=== PATIENT | male | born 1950 | race Caucasian/White ===

== ENCOUNTER → 2017-05-09 | Day surgery (SDC) | payer MEDICARE ==
[~2017-05-09] VITALS: Ht 182.8 cm; Wt 124.7 kg
[~2017-05-09] MED LIST: ASPIRIN325 M2 PO; COREG3.125 MG PO; GLIMEPIRIDE4 MG PO; HYDROCODONE BIT1 T11 PO; METFORMIN HCL500 MG PO; NOVOLIN 70/30 710 ML SC; PENICILLIN VK500 MG PO; PLAVIX75 M1 PO; PRAVACHOL20 MG PO; Peridex 473 ML473 ML PO; TENORMIN25 M1 PO; XANAX0.5 MG PO; ZESTRIL20 MG PO; ZOLOFT100 MG PO; [UNRECOGNIZED DRUG - OTHER] SC
--- NOTE | ~2017-05-09 | O ---
[place], [place] OPERATIVE NOTE NAME: [facility]LLA [facility]ANCOCK [facility] [id number] UNIT #: [id number] ROOM: DOCTOR: MIRA ROMERO MD BIRTHDATE: [birth year] DOS: 05/09/2017 PREOPERATIVE DIAGNOSIS: Cataract, right eye. POSTOPERATIVE DIAGNOSIS: Cataract, right eye. OPERATION: Extracapsular cataract extraction by phacoemulsification with posterior chamber intraocular lens implantation, right eye. ANESTHESIA: Monitored standby. OPERATIVE FINDINGS AND PROCEDURE: 2% Xylocaine topical anesthetic gel was applied to the eye in the preop area. The patient was prepped and draped in the standard fashion for sterile intraocular surgery using Hibiclens because of IODINE allergy. A time out procedure was performed verifying correct patient, correct site and corrects lens with Jamison Romero MD. The operating microscope was swung into position and the lid speculum was inserted. Using a Joelle paracentesis blade, a paracentesis was made through clear cornea. Viscoelastic was used to fill the anterior chamber. Using a metal keratome a 2.4 mm self-sealing clear corneal cataract incision was made temporally at the limbus. Using a pre-bent 25 gauge cystotome needle, a standard continuous curvilinear capsulorrhexis was performed. The anterior capsule was removed with forceps. The lens nucleus was hydrodissected and phacoemulsified in the posterior chamber. Cortical material was removed with the irrigation aspiration hand piece and the posterior capsule was then polished with a curet under irrigation. The posterior chamber and capsular bag were filled with viscoelastic. A posterior chamber intraocular lens manufactured by: [employer], Model #[id number], and 23.0 diopters in strength were then inserted into the posterior chamber and within the capsular bag using the lens cartridge and injector system. Viscoelastic was removed using the irrigation aspiration handpiece. The anterior chamber was filled with balanced salt solution through the paracentesis. Both the paracentesis site and cataract incisions were hydrated with BSS and verified to be water-tight and self-sealing. Cefuroxime 1 mg/0.1 mL was injected into the anterior chamber through the paracentesis site. The incision checked to be water-tight using a Weck-Melani sponge. The integrity of the cataract wound and ocular tension were checked. Lid speculum and drapes were removed. The patient was transferred from the operating room to the recovery room in satisfactory condition. [place], [place] OPERATIVE NOTE NAME: IZABELLA HANCOCK UNIT #: [id number] ROOM: DOCTOR: MIRA ROMERO MD BIRTHDATE: [birth year] MIRA ROMERO MD CM:OPRECORD:OPERATIVE NOTE [phone] 5 MIRA ROMERO MD 05/09/17905 interface
[2017-05-09 07:30] VITALS: BP 159/82
[2017-05-09 08:40] VITALS: BP 131/76
[2017-05-09 08:55] VITALS: BP 138/65
== END | disposition home or self-care (01) ==
LOC: SDC 05-07 15:30
DX: E11.36 Type 2 diabetes mellitus with diabetic cataract (principal); H25.89 Other age-related cataract; I25.10 Atherosclerotic heart disease of native coronary artery without angina pectoris; I25.2 Old myocardial infarction; I10 Essential (primary) hypertension; I12.9 Hypertensive chronic kidney disease with stage 1 through stage 4 chronic kidney disease, or unspecified chronic kidney disease; N18.9 Chronic kidney disease, unspecified; F32.9 Major depressive disorder, single episode, unspecified; Z95.5 Presence of coronary angioplasty implant and graft; Z95.810 Presence of automatic (implantable) cardiac defibrillator; Z86.73 Personal history of transient ischemic attack (TIA), and cerebral infarction without residual deficits; Z98.890 Other specified postprocedural states; Z83.3 Family history of diabetes mellitus; Z82.49 Family history of ischemic heart disease and other diseases of the circulatory system

== ENCOUNTER → 2017-05-30 | Day surgery (SDC) | payer MEDICARE ==
[~2017-05-30] VITALS: Ht 182.8 cm; Wt 124.7 kg
--- NOTE | ~2017-05-30 | O ---
[place], [place] OPERATIVE NOTE NAME: IZABELLA HANCOCK [facility] #: [id number] UNIT #: [id number] ROOM: DOCTOR: MIRA ROMERO MD BIRTHDATE: [birth year] DOS: 05/30/2017 PREOPERATIVE DIAGNOSIS: Cataract, left eye. POSTOPERATIVE DIAGNOSIS: Cataract, left eye. OPERATION: Extracapsular cataract extraction by phacoemulsification with posterior chamber intraocular lens implantation, left eye. ANESTHESIA: Monitored standby. OPERATIVE FINDINGS AND PROCEDURE: 2% Xylocaine topical anesthetic gel was applied to the eye in the preop area. The patient was taken to the operating room and prepped and draped in the standard fashion for sterile intraocular surgery. A time out procedure was performed verifying correct patient, correct site and corrects lens with Jamison Romero M.D. The operating microscope was swung into position and the lid speculum was inserted. Using a Joelle paracentesis blade, a paracentesis was made through clear cornea. Viscoelastic was used to fill the anterior chamber. Using a metal keratome a 2.4 mm self-sealing clear corneal cataract incision was made temporally at the limbus. Using a pre-bent 25 gauge cystotome needle, a standard continuous curvilinear capsulorrhexis was performed. The anterior capsule was removed with forceps. The lens nucleus was hydrodissected and phacoemulsified in the posterior chamber. Cortical material was removed with the irrigation aspiration hand piece and the posterior capsule was then polished with a curet under irrigation. The posterior chamber and capsular bag were filled with viscoelastic. A posterior chamber intraocular lens manufactured by: [employer], Model #[id number], and 22.5 diopters in strength were then inserted into the posterior chamber and within the capsular bag using the lens cartridge and injector system. Viscoelastic was removed using the irrigation aspiration handpiece. The anterior chamber was filled with balanced salt solution through the paracentesis. Both the paracentesis site and cataract incisions were hydrated with BSS and verified to be water-tight and self-sealing. Cefuroxime 1 mg/0.1 mL was injected into the anterior chamber through the paracentesis site. The incision checked to be water-tight using a Weck-Melani sponge. The integrity of the cataract wound and ocular tension were checked. Lid speculum and drapes were removed. The patient was transferred from the operating room to the recovery room in satisfactory condition. [place], [place] OPERATIVE NOTE NAME: IZABELLA HANCOCK UNIT #: [id number] ROOM: DOCTOR: MIRA ROMERO MD BIRTHDATE: [birth year] MIRA ROMERO MD CM:OPRECORD:OPERATIVE NOTE 0914 [id number] MIRA ROMERO MD 05/30/17 1030 interface
[2017-05-30 07:30] VITALS: BP 167/93
[2017-05-30 09:13] VITALS: BP 116/77
[2017-05-30 09:28] VITALS: BP 127/74
[2017-05-30 09:43] VITALS: BP 131/77
== END | disposition home or self-care (01) ==
LOC: SDC 05-24 10:15
DX: E11.36 Type 2 diabetes mellitus with diabetic cataract (principal); Z79.84 Long term (current) use of oral hypoglycemic drugs; I21.3 ST elevation (STEMI) myocardial infarction of unspecified site; M19.90 Unspecified osteoarthritis, unspecified site; I25.10 Atherosclerotic heart disease of native coronary artery without angina pectoris; E11.22 Type 2 diabetes mellitus with diabetic chronic kidney disease; I12.9 Hypertensive chronic kidney disease with stage 1 through stage 4 chronic kidney disease, or unspecified chronic kidney disease; N18.9 Chronic kidney disease, unspecified; F32.9 Major depressive disorder, single episode, unspecified; Z98.890 Other specified postprocedural states

== ENCOUNTER 2018-03-17 01:42 | Inpatient (IN) | payer MEDICARE ==
[2018-03-17] VITALS (13 sets, daily range): BP systolic 77–143; BP diastolic 53–92
[~2018-03-17] VITALS: Ht 182.9 cm; Wt 122.0 kg
--- NOTE | ~2018-03-17 | PR ---
[place], [place] PROGRESS NOTE NAME: IZABELLA HANCOCK UNIT #: [id number] ROOM: 411 DOCTOR: MENDY TARANGO MD BIRTHDATE: [birth year] DOS: 03/22/2018 SUBJECTIVE: The patient going for another foot procedure for debridement tomorrow and his white cell counts continued to improve with antibiotics for debridement. OBJECTIVE: VITAL SIGNS: Blood pressure 128/72, heart rate 67 beats per minute, breathing 20 times per minute and temperature 98.2 degrees Fahrenheit. GENERAL APPEARANCE: The patient is alert and oriented x 3, in no visible distress except for obesity. HEENT AND NECK: Exam within normal limits. CARDIOVASCULAR SYSTEM: Heart rate is regular in rate and rhythm. S1 and S2 normally audible. LUNGS: Clear to auscultation. ABDOMEN: Soft, nontender. No obvious organomegaly. Bowel sounds are present. EXTREMITIES: Left foot debridement. IMPRESSIONS AND PLAN: 1. Left foot osteomyelitis and necrotizing fasciitis. The patient is going for another debridement of the foot by foot surgeons tomorrow and being followed by Infectious Disease specialist. The patient remains on Unasyn intravenously. 2. Benign essential hypertension, treated and controlled. 3. Major depression, recurrent, mild, treated with Zoloft. 4. Type 2 diabetes mellitus. The patient is on no concentrated sweet diet and on glimepiride. Blood sugars are reasonably controlled. 5. Severe systolic type compensated congestive heart failure, seen by his metals sales representative, Dr. Winchester. 6. Obesity with body mass index of 35.8. The patient working with dietary. 7. Coronary artery disease of the [place] vessels without chest pains. 8. Advance adult failure to thrive. We are taking an ambulatory dysfunction. We are taking bedsore precautions turning him every 2 hours using an air mattress. 9. Severe leukocytosis from left foot infection, improving with antibiotics and wound debridement. [place], [place] PROGRESS NOTE NAME: IZABELLA HANCOCK UNIT #: [id number] ROOM: 411 DOCTOR: MENDY TARANGO MD BIRTHDATE: [birth year] MENDY TARANGO MD CM:PNTRANS [phone] 1 MENDY TARANGO MD 03/23/18252 interface
--- NOTE | ~2018-03-17 | CON ---
[place], [place] REPORT OF CONSULTATION NAME: IZABELLA HANCOCK UNIT #: [id number] ROOM: 411 DOCTOR: AAYUSH GABRIEL MD BIRTHDATE: [birth year] DOS: 03/18/2018 HISTORY OF PRESENT ILLNESS: This is a 67-year-old -[place] man with a history of coronary artery disease and severe ischemic cardiomyopathy, had an AICD implanted. He had had an acute AZ back in 2002, also has insulin-requiring diabetes mellitus, hyperlipidemia, GERD and chronic systolic heart failure with no recent decompensation. He has obesity. He was admitted to the hospital because he had been feeling lethargic, dizzy and apparently fell down and hurt himself and while being examined, a blister on the left foot was identified. It ruptured and it had had become somewhat red, so further examination demonstrated that he had an abscess which he had drained and had amputation of one of the toes today. I saw him in the office about a week or two ago. He has not had any PND, orthopnea or swelling of the lower extremities or palpitations and AICD has not discharged. HOME MEDICATIONS: Include aspirin 325 daily, clopidogrel 75 mg, glimepiride 4 mg daily, lisinopril 20 daily, metformin 500 mg b.i.d., pravastatin 40 daily, sertraline or Zoloft 100 mg tablets one and a half daily; and Novolin 70/30, 7 units subQ b.i.d. PHYSICAL EXAMINATION: GENERAL: This revealed the patient who is very pleasant, alert. He is moderately obese, not pale looking, he is not diaphoretic. VITAL SIGNS: Temperature 97.8 degrees Fahrenheit. Pulse is 80 regular, blood pressure 139/74. NECK: Normal JVP. AJR is negative. EXTREMITIES: He has no edema in lower extremity. Pedal pulses are difficult to palpate. RESPIRATORY: He is not tachypneic. Percussion note is normal. Auscultation is excellent breath sounds without any adventitious sounds. ABDOMEN: Supple, nontender. It is large. Bowel sounds are normal. LABORATORY DATA: An echocardiogram was done today. It demonstrated an LV ejection fraction of 35-40% and mildly dilated left ventricle and grade 1 abnormal relaxation pattern. IMPRESSION: This patient has a moderate to moderately severe cardiomyopathy that is well compensated. Current medications should be continued. Be cautious with the IV fluids as he could develop cardiac decompensation. I thank you for this consult. [place], [place] REPORT OF CONSULTATION NAME: IZABELLA HANCOCK UNIT #: [id number] ROOM: 411 DOCTOR: AAYUSH GABRIEL MD BIRTHDATE: [birth year] AAYUSH GABRIEL MD CM:CONSTR:REPORT OF CONSULTATION 15 03/19/18 0236 interface
--- NOTE | ~2018-03-17 | PR ---
[place], [place] PROGRESS NOTE NAME: IZABELLA HANCOCK [facility] #: [id number] UNIT #: [id number] ROOM: 411 DOCTOR: AAYUSH GABRIEL MD BIRTHDATE: [birth year] DOS: 03/24/2018 SUBJECTIVE: He has been in bed for the last week, has not been sat in the chair. He has some back pain, but no chest pain or breathing difficulty, no orthopnea or PND, and has not had any swelling in the legs. No fever or chills. He had debridement of osteomyelitis and cellulitis of the left foot. He feels well. Appetite is fine. No nausea and, in fact, has no symptoms. OBJECTIVE: VITAL SIGNS: Temperature 98.4 degrees, pulse is 72 and regular, blood pressure 140/76; previous blood pressure was 120/63. NECK: Normal JVP. HJR is negative. LUNGS: Clear to auscultation with good breath sounds. EXTREMITIES: Trace left pretibial edema. IMAGING: Monitor shows no dysrhythmias. IMPRESSION: This patient has: 1. Huzrggaq-ua-aeoflb ischemic cardiomyopathy, which is very well compensated. 2. Infection of the left foot is being treated with intravenous antibiotics and changing dressing. My strong recommendation is to get this patient out of the bed and have him sit and maybe walk if that is possible because otherwise, he will probably develop orthostatic hypotension, autonomic dysfunction. AAYUSH GABRIEL MD CM:PNTRANS [phone] AAYUSH GABRIEL MD 03/24/18 1053 interface
--- NOTE | ~2018-03-17 | PR ---
[place], [place] PROGRESS NOTE NAME: IZABELLA HANCOCK UNIT #: [id number] ROOM: 411 DOCTOR: MENDY TARANGO MD BIRTHDATE: [birth year] DOS: 03/23/2018 SUBJECTIVE: The patient is status post debridement and application of graft and wound VAC to his left foot for necrotizing fasciitis with white cell count improved to 14,600 from 36,000. PHYSICAL EXAMINATION: VITAL SIGNS: Blood pressure 124/73, heart rate 68 beats per minute, breathing 20 times per minute, temperature 98 degrees Fahrenheit. GENERAL APPEARANCE: The patient is alert and oriented x 3, in no visible distress. HEENT AND NECK: Exam within normal limits. CARDIOVASCULAR SYSTEM: Heart rate is regular in rate and rhythm. S1 and S2 normally audible. LUNGS: Clear to auscultation. ABDOMEN: Soft, nontender. No obvious organomegaly. Bowel sounds are present. Obesity. EXTREMITIES: Without significant cyanosis or edema. Left foot wounds. IMPRESSION: 1. The patient with left foot osteomyelitis and necrotizing fasciitis, status post 2 surgeries and wound VAC placement. 2. Severe leukocytosis related to foot infection, improving. The patient remains on IV Unasyn. 3. Major depression, recurrent, mild, treated with Zoloft. 4. Type 2 diabetes mellitus. Blood sugars are being monitored and treated and are reasonably controlled. Patient on glimepiride. 5. Severe systolic type compensated congestive heart failure followed by free lance artist, Dr. Winchester. 6. Obesity with BMI of 35.8. The patient working with dietary. 7. Coronary artery disease of [place] vessels without chest pain. 8. Advance adult failure to thrive. The patient is waiting to go to snf for rehabilitation and antibiotics. We are taking bedsore precautions. [place], [place] PROGRESS NOTE NAME: IZABELLA HANCOCK UNIT #: [id number] ROOM: 411 DOCTOR: MENDY TARANGO MD BIRTHDATE: [birth year] MENDY ATRANGO MD CM:PNTRANS [phone] MENDY TARANGO MD 03/24/18 0656 interface
--- NOTE | ~2018-03-17 | PR ---
[place], [place] PROGRESS NOTE NAME: IZABELLA HANCOCK [facility] #: [id number] UNIT #: [id number] ROOM: 411 DOCTOR: CAROL LEON DPM BIRTHDATE: [birth year] DOS: 03/23/2018 SUBJECTIVE: The patient is seen for followup of postop fifth met resection and Integra graft application. OBJECTIVE: Upon removal of the wound VAC, there are no signs of further necrosis of the foot. No signs of return of abscess. Decreased erythema. Graft is intact. ASSESSMENT: Post-debridement and application of graft, healing well. PLAN: The patient will continue wound VAC therapy and we will continue to follow the patient in-house. CAROL LEON DPM CM:SHIRIN [id number] CAROL LEON DPM 03/23/18 1429 interface
--- NOTE | ~2018-03-17 | PR ---
[place], [place] PROGRESS NOTE NAME: IZABELLA HANCOCK [facility] #: [id number] UNIT #: [id number] ROOM: 411 DOCTOR: KB MOON DPM BIRTHDATE: [birth year] DOS: 03/18/2018 SUBJECTIVE: This patient is seen in the preop area for evaluation and treatment of a significant left diabetic foot infection. The patient was admitted early Sunday morning with sepsis, elevated white count, low-grade fever. The patient subsequently was found to have a left foot infection with blistering and some necrosis of tissue highly suspicious for possible necrotizing fasciitis. Upon evaluation of the patient, there was a large area of tissue necrosis including the fifth toe, dorsal fifth MPJ, dorsal left fourth MPJ. It was extending towards the dorsal mid foot and extending medially as well. There was no crepitus felt, but there was purulence and fluctuance noted at the MPJ. There was pus coming from a plantar wound, there was malodor and again there was blistering of tissue. The patient was neuropathic, so he did not have any pain with palpation or examination of the area. LABORATORY DATA: Labs were reviewed. The patient's white count was 29,000. Lactic acid was elevated. His creatinine was elevated. Sodium was low. PLAN: I discussed with the patient the need to be taken to surgery for debridement of the area. I told him this would most likely include an amputation of the fifth toe as well as extensive debridement of the necrotic tissue. This is in an effort to remove any infected tissue to reduce progression of the infection and avoid limb loss. I told him possible complications included further debridements, further surgery, amputation, limb loss, sepsis or even loss of life. The patient is agreeable to the surgery and is aware of the possible complications. Clinically, the patient did have a barely palpable dorsalis pedis pulse with a decreased PT pulse on the left. Informed consent was signed and the patient was set to go to surgery for the procedure on the left foot. KB MOON DPM CM:PNTRANS 1801 [id number] KB MOON DPM 03/25/18 0725 interface
--- NOTE | ~2018-03-17 | WRIGHTHP ---
[place], [place] PATIENT HISTORY AND PHYSICAL EXAM NAME[id number] UNIT #: [id number] ROOM: 411 DOCTOR: ANTONIO SALINAS DPM BIRTHDATE: [birth year] DOS: 03/20/2018 INDICATION: The patient was seen in the preop holding area. I introduced myself to him. This patient has a history of diabetic foot ulcer and had previous debridement earlier this week by Dr. Loredo. At this point in time, the patient was returned back to the OR for re-debridement as he has still some necrotic tissue present as well as exposed bone. His foot looks stable and looks salvageable at this point in time based on my evaluation on him. He agreed to the site marking and agreed to the consent and he understands he is at risk for limb loss. With this in mind, he was brought in the OR today on 03/21/2018 understanding the pros, cons, risks and benefits of surgery. This is a limb salvage surgery. With this, he agreed his consent. He understood the preoperative management and the followup need and the responsibilities and this was discussed with him and his . ANTONIO SALINAS DPM CM:HISPHYS:PATIENT HISTORY AND PHYSICAL EXAMINATION 0935 1010 ANTONIO SALINAS DPM 04/16/18 1601 interface
--- NOTE | ~2018-03-17 | WRIGHTHP ---
[place], [place] PATIENT HISTORY AND PHYSICAL EXAM [id number] UN[facility] #: [id number] ROOM: 411 DOCTOR: ANTONIO SALINAS DPM BIRTHDATE: [birth year] DOS: 03/20/2018 LOWER EXTREMITY PHYSICAL EXAMINATION: VASCULAR: There is adequate perfusion in his left lower extremity based on vascular testing and also based on clinical evaluation. The digits are pink, healthy and mobile. There is good cap refill time noted. NEUROLOGIC: He has complete loss of protective sensation, diabetic peripheral neuropathy. MUSCULOSKELETAL: He has a tight posterior muscle group. Orthopedic exam, he has osteomyelitis with a deep space infection in his distal lateral forefoot. ANTONIO SALINAS DPM CM:HISPHYS:PATIENT HISTORY AND PHYSICAL EXAMINATION 0935 1148 ANTONIO SALINAS DPM 04/16/18 1601 interface
--- NOTE | ~2018-03-17 | O ---
[place], [place] OPERATIVE NOTE NAME: [facility]OCK [id number] UNIT #: [id number] ROOM: 411 DOCTOR: ANTONIO SALINAS DPM BIRTHDATE: [birth year] DOS: 03/20/2018 SURGEON: Antonio Salinas DPM ASSISTANTS: 1. Dr. Jaiden Harris. 2. Dr. Casey Rojas. PREOPERATIVE DIAGNOSES: 1. Osteomyelitis, dorsal lateral foot, the fourth and fifth metatarsals, left foot. 2. Post-debridement open wound that measures 7.5 cm x 8.0 cm x 1.5 cm. POSTOPERATIVE DIAGNOSES: 1. Osteomyelitis, dorsal lateral foot, the fourth and fifth metatarsals, left foot. 2. Post-debridement open wound that measures 7.5 cm x 8.0 cm x 1.5 cm. PROCEDURES: 1. Incision and drainage, bone debridement, bone biopsy of the left fourth and fifth metatarsals as well as the soft tissues. 2. Application of Integra graft. 3. Application of negative pressure therapy wound VAC. PROCEDURE #1: INCISION AND DRAINAGE AND BONE DEBRIDEMENT AND BONE BIOPSY OF LEFT FOREFOOT: The patient was seen in preop holding area, appropriate site marking was performed. He and his agreed, concurred with the preoperative management and was brought into the OR and appropriate site marked. At this in point, he was brought to OR, placed on well-padded OR table. Anesthesia was achieved. Once anesthesia was achieved, left foot and leg were prepped and draped in usual sterile fashion. At this point in time, a full thickness sharp excisional debridement was performed around the rim of the existing wound. This is full thickness in nature and tissues were debrided extensive down to bone and tissues were sent for Gram stain, aerobic, anaerobic, fungal acid fast as well as soft tissue biopsy. Next, bone was debrided with a rongeur and bone was excised and removed in total and resected, any necrotic tissues were noted and bone was sent for Gram stain, aerobic, anaerobic, fungal acid fast as well as a biopsy as well of the dorsum of the left foot on the fourth and fifth metatarsals. Next, a power television installer was used 3000 mL power irrigation was used. PROCEDURE #2: APPLICATION OF INTEGRA GRAFT: Next, a 4 x 5 piece of Integra graft was used. The remaining portions of 4 x 5 that was used, the collagen was debrided off and packed into the wound. The Integra graft was applied and stapled down around the rim of the wound in an essential area to prevent any shearing occurring from the wound of the left foot. PROCEDURE #3: APPLICATION OF NEGATIVE PRESSURE THERAPY WOUND VAC: At this point in time, the [employer] wound VAC was applied in the usual sterile technique. This was applied and this is set at 200 mm compression therapy and continuous. [place], [place] OPERATIVE NOTE NAME: KARISSAIZABELLA SUAREZ UNIT #: [id number] ROOM: [facility] DOCTOR: ANTONIO SALINAS DPM BIRTHDATE: [birth year] At this point in time, an Adaptic was applied with the wound VAC, 4 x 4s, Key in a sterile compressive fashion was applied. He tolerated the procedure and anesthesia well and left the OR with vital signs stable and vascular status intact. ANTONIO SALINAS DPM CM:OPRECORD:OPERATIVE NOTE 0935 1023 ANTONIO SALINAS DPM 04/25/18 0747 interface
--- NOTE | ~2018-03-17 | PR ---
[place], [place] PROGRESS NOTE NAME: IZABELLA HANCOCK [facility] #: [id number] UNIT #: [id number] ROOM: 411 DOCTOR: MENDY TARANGO MD BIRTHDATE: [birth year] DOS: 03/18/2018 SUBJECTIVE: The patient is very weak, working with physical therapy, understands that he requires rehabilitation. OBJECTIVE: VITAL SIGNS: Blood pressure 112/60, heart rate 99 beats per minute, breathing 20 times per minute, temperature 99.6 degrees Fahrenheit. IMPRESSION: 1. Patient with severe leukocytosis, urinary tract infection and cellulitis involving the left foot, is being treated with antibiotics and followed by Infectious Disease specialist. 2. Advanced adult failure to thrive, generalized weakness, recurrent falls, dizziness, and lightheadedness. Patient working with physical therapy. 3. Uncontrolled type 2 diabetes mellitus with elevated blood sugars, now improved, now ranging between 122 to less than 200 mostly, occasionally higher. 4. Obesity, BMI of 35.8. Patient working with dietary. 5. History of coronary artery disease of [place] vessels without any chest pains. 6. Chronic kidney disease stage 3B for which his metformin had to be stopped. 7. Generalized weakness and adult failure to thrive. Patient working with physical therapy, we are taking bedsore precautions using air mattress and every 2 hour turning. MENDY TARANGO MD CM:PNTRANS [phone] MENDY TARANGO MD 03/19/18 0034 interface
--- NOTE | ~2018-03-17 | DS ---
[place], [place] DISCHARGE SUMMARY NAME: IZABELLA HANCOCK [facility] #: [id number] UNIT #: [id number] ROOM: 411 DOCTOR: MENDY TARANGO MD BIRTHDATE: [birth year] DOS: 03/25/2018 DISCHARGE DIAGNOSES: 1. Necrotizing fascitis involving left foot, status post 2 surgeries and wound VAC placement by the foot doctors. 2. Type 2 diabetes mellitus. 3. Major depression, recurrent. 4. Obesity. 5. Coronary artery disease of the [place] vessels. 6. Advanced adult failure to thrive. 7. Coronary artery disease of the [place] vessels. 8. Severe systolic type compensated congestive heart failure followed by Dr. Winchester. The patient presented with left foot infection and was found to have necrotizing fasciitis for which she was immediately taken for surgery by the zinc plate grainer and Dr. Winter operated on 2 times and wound VAC was placed. The patient had leukocytosis of 36,000, which has improved with treatment of antibiotics and antibiotics will be continued at rehabilitation. 9. Advance adult failure to thrive and ambulatory dysfunction. The patient worked with physical therapy, which will be continued at nursing facility. 10. Coronary artery disease of the [place] vessels without chest pains. 11. Severe systolic type compensated CHF followed by Dr. Winchester. 12. Type 2 diabetes mellitus. Blood sugars are reasonably controlled with insulin and metformin. 13. Advanced adult failure to thrive. We took bedsore precautions, use an air mattress and every 2-hour turning along with physical therapy. 14. Major depression, recurrent, mild, treated with Zoloft. LABORATORY DATA: BUN and creatinine 16 and 1.37, magnesium 2.3. Hemoglobin 9.9, white cell count of 14,600. Blood cultures were negative. Latest wound cultures were negative. DISCHARGE MANAGEMENT: IV ceftriaxone 2 grams daily for 6 weeks, oral metronidazole 500 mg 3 times a day for 2 weeks. Please arrange followup appointment with Podiatry, Dr. Winter and group. Plavix 75 mg a day, aspirin 325 mg a day, glimepiride 4 mg daily, Coreg 3.125 mg b.i.d., lisinopril 2.5 mg daily, Zoloft 150 mg a day. No concentrated sweet diet. Physical therapy and occupational therapy consults. Regular wound dressings as ordered by Podiatry. [place], [place] DISCHARGE SUMMARY NAME: IZABELLA HANCOCK UNIT #: [id number] ROOM: 411 DOCTOR: MENDY TARANGO MD BIRTHDATE: [birth year] MENDY TARANGO MD CM:JA [id number] MENDY TARANGO MD 04/11/18 1058 interface
--- NOTE | ~2018-03-17 | PN ---
[place], [place] PROGRESS NOTE NAME: IZABELLA HANCOCK UNIT #: [id number] ROOM: 411 DOCTOR: ANTONIO SALINAS DPM BIRTHDATE: [birth year] DATE: 03/20/18 ADDENDUM TO RESIDENT REPORT: I rounded with the resident and concur with their diagnosis and treatment as documented by the resident. ANTONIO SALINAS DPM CM:PNTRANS 1030 160 ANTONIO SALINAS DPM 04/10/18 1608 MORALES SIERRA MIS.LLR
--- NOTE | ~2018-03-17 | PR ---
[place], [place] PROGRESS NOTE NAME: IZABELLA HANCOCK UNIT #: [id number] ROOM: 411 DOCTOR: MENDY TARANGO MD BIRTHDATE: [birth year] DOS: 03/19/2018 SUBJECTIVE: The patient is feeling much better. The patient is status post amputation of the left fifth digit and debridement of the foot yesterday by Dr. Loredo. OBJECTIVE: VITAL SIGNS: Blood pressure 101/68, heart rate 77 beats per minute, breathing 20 times per minute, temperature 98 degrees Fahrenheit. GENERAL APPEARANCE: The patient is alert and oriented x 3, in no visible distress. HEENT AND NECK: Exam within normal limits. CARDIOVASCULAR SYSTEM: Heart rate is regular in rate and rhythm. S1 and S2 normally audible. LUNGS: Clear to auscultation. ABDOMEN: Soft, nontender. No obvious organomegaly. Bowel sounds are present. EXTREMITIES: Without significant cyanosis or edema. IMPRESSION: 1. The patient with extensive infection involving the left foot, being treated with antibiotics and status post debridement and going for surgery again tomorrow. 2. Longstanding type 2 diabetes mellitus. Blood sugars are being monitored and treated. 3. Obesity. BMI of 35.8. The patient working with dietary. 4. Coronary artery disease of the [place] vessels without chest pain. 5. Chronic kidney disease and diabetic nephropathy, stage 3B. Blood sugars being monitored and controlled. 6. Adult failure to thrive, generalized weakness and ambulatory dysfunction. The patient working with physical therapy and waiting for transfer to rehabilitation. 7. Left foot infection, being treated with antibiotics. 8. Severe leukocytosis from foot infection. White cell count is improving with treatment of antibiotics and surgical debridement. [place], [place] PROGRESS NOTE NAME: IZABELLA HANCOCK UNIT #: [id number] ROOM: 411 DOCTOR: MENDY TARANGO MD BIRTHDATE: [birth year] MENDY TARANGO MD CM:PNTRANS 45 MENDY TARANGO MD 05/03/18 0855 interface
--- NOTE | ~2018-03-17 | PR ---
[place], [place] PROGRESS NOTE NAME: IZABELLA HANCOCK [facility] #: [id number] UNIT #: [id number] ROOM: 411 DOCTOR: SUKHDEEP VARELA,MENDY Yeh BIRTHDATE: [birth year] DOS: 03/20/2018 The patient is status post surgical debridement of his left foot for severe infection. The patient on wound VAC now after surgery and being followed by Infectious Disease specialist and receiving IV vancomycin and clindamycin. Benign essential hypertension, being followed and treated. Urethral bleeding this morning has resolved on its own. The patient takes Plavix and aspirin. Type 2 diabetes mellitus. Blood sugars are reasonably controlled. Diabetic nephropathy with stage 3A chronic kidney disease and diabetic nephropathy. Severe systolic type chronic compensated congestive heart failure, re-evaluated by Dr. Winchester, his accounts receivable executive. Obesity with BMI of 35.8. The patient working with dietary. Coronary artery disease of the [place] vessels without chest pains. Adult failure to thrive and ambulatory dysfunction. The patient working with physical therapy, waiting for transfer to [facility]. Severe leukocytosis, apparently from infection, has improved to white cell count of 18,000 now. MENDY TARANGO MD CM:PNTRANS 1035 1610 MENDY TARANGO MD 04/11/18 1049 interface
--- NOTE | ~2018-03-17 | PR ---
[place], [place] PROGRESS NOTE [id number] UN[facility] #: [id number] ROOM: 411 DOCTOR: DANUTA LAKEAUGUST BIRTHDATE: [birth year] DOS: 03/24/2018 SUBJECTIVE: The patient is being followed for a left foot necrotizing infection and osteomyelitis, status post debridement and toe amputation. His cultures have all grown group G strep, now with possible anaerobic growth as well. He remains on Unasyn. He is tolerating antibiotics without issue. Denies fevers, chills, nausea, vomiting or diarrhea. No rash or itch. No cough or shortness of breath, minimal pain in the left foot. Further review of systems is unremarkable. Mild edema of the left lower extremity. OBJECTIVE: VITAL SIGNS: Temperature 98.4, pulse 71, respirations 20, BP 140/76. CURRENT MEDICATIONS: Include Unasyn, Plavix, aspirin, Amaryl, Zofran, Zoloft, Zestril, Coreg, Humulin. LABORATORY DATA: WBCs are improving 12.6, platelets 256. BUN 16, creatinine 1.37. PHYSICAL EXAMINATION: GENERAL: Alert and oriented 67-year-old male, in no acute distress. HEENT: Normocephalic. NECK: Supple. No thrush. LUNGS: Clear to auscultation bilaterally. Respirations even and unlabored. HEART: Regular rhythm. No murmur appreciated. ABDOMEN: Soft, nondistended. EXTREMITIES: Left lower extremity +1 edema. Left foot dressed with a VAC in place. Right lower extremity is unremarkable. Right upper extremity PICC in place. Dressing dry and intact. No signs of phlebitis. SKIN: Warm, dry, free of rashes. ASSESSMENT: Left foot necrotizing infection and osteomyelitis, status post debridement per Podiatry. PLAN: Continue Unasyn and possibly transition to Rocephin and Flagyl upon discharge, will need to follow up with our office within the next 1-2 weeks. I did discuss this with the patient and his family, he is possibly going to a intermediate facility in the next day or so. This is attestation to the progress note made by the nurse practitioner, Evelin Tipton. I reviewed the labs and imaging and made the necessary changes in the note. EVELIN JAYA TIPTON [place], [place] PROGRESS NOTE NAME: IZABELLA HANCOCK UNIT #: [id number] ROOM: [facility] DOCTOR: DANUTA TRAY LINE SUPERVISOR,AUGUST BIRTHDATE: [birth year] Audrey Hernandez MD CM:PNKEE [id number] AUGUST DANUTA LAKE 04/01/18 1057 interface
--- NOTE | ~2018-03-17 | PR ---
[place], [place] PROGRESS NOTE NAME: IZABELLA HANCCOK [facility] #: [id number] UNIT #: [id number] ROOM: 411 DOCTOR: AAYUSH GABRIEL MD BIRTHDATE: [birth year] DOS: 03/19/2018 SUBJECTIVE: The patient had a very good day today. He did not have any chest pain or breathing difficulty; however, he just developed hypoglycemia, became symptomatic and this is being addressed. He is not having any pain or any palpitations. PHYSICAL EXAMINATION: GENERAL: Reveals a patient who is diaphoretic, a little quiet and slow. Blood sugars rather low at this time. NECK: Normal JVP. LUNGS: Show few rhonchi in the lungs. EXTREMITIES: No edema in the lower extremities. IMPRESSION: The patient with severe cardiomyopathy, is well compensated. No postoperative complications. No new recommendations. AAYUSH GABRIEL MD CM:PNTRANS 05 AAYUSH GABRIEL MD 03/20/187 interface
--- NOTE | ~2018-03-17 | WRIGHTHP ---
[place], [place] PATIENT HISTORY AND PHYSICAL EXAM NAME: IZABELLA HANCOCK [facility] #: [id number] UNIT #: [id number] ROOM: 411 DOCTOR: MENDY TARANGO MD BIRTHDATE: [birth year] DOS: 03/17/2018 HISTORY OF PRESENT ILLNESS: The patient is a 67-year-old gentleman with a past medical history of: 1. Obesity. 2. Cardiomyopathy with left ventricular ejection fraction of 25%. 3. Chronic systolic type congestive heart failure. 4. Chronic obesity. 5. Coronary artery disease of the [place] vessels and [place]. 6. Benign essential hypertension. 7. Mixed hyperlipidemia. 8. Chronic kidney disease stage 3B. 9. Major depression, recurrent. 10. Cardiac defibrillator placement. 11. Type 2 diabetes mellitus. 12. 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 The patient presented to the Emergency Department at [facility] for feeling dizzy and when he got up, he fell down and he has been lightheaded recently, especially after the last medication change by Dr. Winchester. The patient also noticed a blister on his left foot today, which ruptured and there is redness surrounding the area. The patient was recommended for admission and further management. The patient was also discovered to have urinary tract infection and leukocytosis on evaluation in the ER. REVIEW OF SYSTEMS: RESPIRATORY: No increasing shortness of breath. GASTROINTESTINAL: No nausea, vomiting, diarrhea, constipation. CARDIOVASCULAR SYSTEM: The patient complains of lightheadedness and falls. MEDICATIONS: Glimepiride, Plavix, aspirin, Zoloft, metformin, insulin. FAMILY HISTORY: Noncontributory. ALLERGIES: Known allergies to IODINE. PHYSICAL EXAMINATION: GENERAL: Alert and oriented x 3, morbidly obese, generalized weakness. HEENT AND NECK: Extraocular movements are intact. Sclerae are anicteric. Oral mucosa is moist and clean. No obvious facial weakness. Neck is supple without any lymphadenopathy. No thyromegaly. No JVD. No carotid arterial bruits. LUNGS: Clear to auscultation. No wheezing. No rhonchi. CARDIOVASCULAR SYSTEM: Heart rate is regular in rate and rhythm. S1 and S2 normally audible. No significant murmur or any other abnormal cardiac sounds. ABDOMEN: Soft, nontender. No obvious organomegaly. Bowel sounds are present. No obvious herniation. EXTREMITIES: The patient has redness and skin loss on top of his left foot and the redness is streaking up his left ankle. CENTRAL NERVOUS SYSTEM: Alert and oriented x 3. Cranial nerves II-XII are intact. Speech is normal. The patient is able to move all extremities. Normal [place], [place] PATIENT HISTORY AND PHYSICAL EXAM NAME: IZABELLA HANCOCK UNIT #: [id number] ROOM: 411 DOCTOR: MENDY TARANGO MD BIRTHDATE: [birth year] muscle strength. Deep tendon reflexes are equal on both sides. Plantars were downgoing. LABORATORY DATA: BUN and creatinine 25 and 2, blood sugar 533. CT of the head is showing old infarct and chronic small vessel disease, old infarcts in the right parietal lobe. IMPRESSION AND PLAN: 1. Advanced adult failure to thrive, generalized weakness, falls, dizziness and lightheadedness. I am consulting his reeling machine setup operator, Dr. Winchester, who performed some recent medication changes to follow him. 2. Severe leukocytosis, apparently from urinary tract infection and he also has cellulitis involving left foot, to be treated with IV antibiotics and Infectious Disease specialist to be consulted. 3. Uncontrolled type 2 diabetes mellitus with blood sugars going above 500. I will treat him with glimepiride and sliding scale of insulin, also continue his NPH insulin that he was taking at home. 4. Chronic kidney disease stage 3B. I will stop his metformin because it is an unsafe medication because of his chronic kidney disease. 5. History of coronary artery disease of the [place] vessels, without chest pains. 6. Obesity with a BMI of 35.8. The patient to work with Dietary. 7. Generalized weakness, adult failure to thrive. The patient to work with Physical Therapy. We are also taking bedsore precautions and using air mattress and every 2 hour turning. MENDY TARANGO MD CM:HISPHYS:PATIENT HISTORY AND PHYSICAL EXAMINATION 25 55 MENDY TARANGO MD 03/17/181655 interface
--- NOTE | ~2018-03-17 | EKG ---
[place], [place] ELECTROCARDIOGRAM REPORT NAME: IZABELLA HANCOCK UNIT #: [id number] ROOM: 411 DOCTOR: NASRA DRAFT REPORT BIRTHDATE: [birth year] [facility] Test Date: 2018-03-17 Test Time: 01:59:20 Pat Name: IZABELLA HANCOCK Department: Room: 411 Gender: M Diet Tech: IAN : 1950 Requested By: GERRY GERARDO Order Number: [id number] Reading MD: Gary Polk MD Measurements Intervals [place] Rate: 123 P: 62 ME: 129 QRS: -48 QRSD: 100 T: 86 QT: 343 QTc: 491 Interpretive Statements Sinus tachycardia Left anterior fascicular block Low voltage, precordial leads Probable anteroseptal infarct, old Electronically Signed On 03-17-2018 11:03:34 PDT by Gary Polk MD CM:EKGRPT:ELECTROCARDIOGRAM REPORT [id number] GERRY ODELL DRAFT REPORT GERRY GERARDO DO
--- NOTE | ~2018-03-17 | O ---
[place], [place] OPERATIVE NOTE [id number] #: [id number] ROOM: 411 DOCTOR: KB LOREDO DPM BIRTHDATE: [birth year] DOS: 03/18/2018 SURGEON: Kb Loredo DPM. COMMERCIAL HVAC SERVICE TECHNICIAN: Jer Ellison, first year resident. PREOPERATIVE DIAGNOSES: Abscess, infection, possible necrotizing fasciitis, left foot. POSTOPERATIVE DIAGNOSES: Abscess, infection, possible necrotizing fasciitis, left foot. PROCEDURE: Amputation, left fifth toe and then extensive debridement of infected and necrotic tissue, left foot. ANESTHESIA: LMAC. INJECTABLE: 10 mL of 0.5% Marcaine plain. FINDINGS: About 5 mL. PATHOLOGY: left fifth toe as well as soft tissue for Gram stain and culture. Cultures were taken view of the amputated tissue as well as the remaining tissue of the foot. COMPLICATIONS: None. DESCRIPTION OF PROCEDURE: After appropriate preoperative evaluation, the patient was brought in the OR and placed in the OR table in supine position. Attention was directed to the left foot. There was noted to be an extensive infection at the left fifth MPJ. Anesthesia was then administered per anesthesia record. Next, a total of 10 mL of 0.5% Marcaine plain was injected proximal to the infected area on the left foot. The area was prepped and draped in usual sterile manner. Left foot was lowered to the surgical field. Attention was directed to the plantar surface of the left fifth metatarsal head where there was noted to be a sinus tract. Upon probing this with the Alcolu elevator purulence poured from the wound. This extended up into the fifth MPJ. Next, using a 15 blade a 4 cm incision was made plantarly, more purulence was encountered at this time. There was significant malodor as well. There was a tract that extended dorsally into the fifth MPJ and extended dorsally to the dorsal lateral forefoot as well. At this time, it was deemed that the joint and the toe were significantly infected, so it was decided to do an amputation of left fifth toe. A dorsal incision was made proximal to the fifth MPJ. This was connected in a fish mouth fashion and the toe was disarticulated at the MPJ. Once this was disarticulated, there was still more purulence noted dorsal and lateral with probably another 3 mL of purulence noted as well as still a significant malodor. Next, a 15 blade was used to debride any infected and necrotic tissue. The purulence did extend medially to just proximal to the third MPJ and extended proximally almost just distal to the Lisfranc's joint. Using a rongeur and 15 blade, all necrotic and significantly infected tissue was [place], [place] OPERATIVE NOTE NAME: IZABELLA HANCOCK UNIT #: [id number] ROOM: 411 DOCTOR: SARAI KNIGHT,KB BIRTHDATE: [birth year] debrided to good clean base at this time. Once this was all done, there was some bleeding from the remaining tissue and the tissue did look healthy. No further purulence or malodor was encountered. Cultures were taken of this area after debridement and cultures were also taken of the toe and the infected tissue that was debrided from the wound. The area was then flushed with 3 liters of normal saline using a pulse pug mill operator helper. The remaining area was inspected and was noted to be very clean with some bleeding noted. There was no excessive bleeding noted. There was no remaining necrotic or malodorous tissue. Tissue looked good at this point. At this time, saline moistened 4 x 4 was applied to the wound, followed by 4 x 4s, ABD, Kerlix and Nura wrap. The patient tolerated this procedure and anesthesia well and left the OR with vital signs stable and intact and transported to the recovery room. We will change the bandage tomorrow. We will continue IV antibiotics per Infectious Disease. I discussed with the family postoperatively that we need to monitor the foot closely for any worsening or any continued necrosis or further infection. He will have postoperative arterial Doppler studies to evaluate for underlying PAD, possible vascular consult if warranted. Check labs tomorrow and we will reevaluate the wound tomorrow. KB LOREDO DPM CM:OPRECORD:OPERATIVE NOTE 180 15 KB LOREDO DPM 03/19/18 1011 interface
--- NOTE | ~2018-03-17 | PR ---
[place], [place] PROGRESS NOTE NAME: IZABELLA HANCOCK UNIT #: [id number] ROOM: 411 DOCTOR: MENDY TARANGO MD BIRTHDATE: [birth year] DOS: 03/21/2018 SUBJECTIVE: The patient is feeling better and working with physical therapy after his left foot surgery. OBJECTIVE: GENERAL APPEARANCE: The patient is alert and oriented x 3, in no visible distress. Obesity. VITAL SIGNS: Blood pressure 135/65, heart rate 79 beats per minute, breathing 17 times per minute, afebrile. HEENT AND NECK: Exam within normal limits. CARDIOVASCULAR SYSTEM: Heart rate is regular in rate and rhythm. S1 and S2 normally audible. LUNGS: Clear to auscultation. ABDOMEN: Soft, nontender. No obvious organomegaly. Bowel sounds are present. EXTREMITIES: Without significant cyanosis or edema. The patient has left foot wound, status post debridement with wound VAC in place. IMPRESSION: 1. The patient with severe left foot infection status post debridement x 2 and wound VAC placement by the auto customize painter. The patient is being followed by Infectious Disease specialist and being treated with Unasyn intravenously. 2. The patient with urethral bleeding, which stopped spontaneously. He is on aspirin and Plavix. 3. Type 2 diabetes mellitus with diabetic nephropathy, stage 3A chronic kidney disease. 4. Severe systolic type compensated congestive heart failure, reevaluated by his quality director, Dr. Winchester. 5. Obesity with BMI of 35.8. The patient working with dietary. 6. Coronary artery disease of the [place] vessels without chest pain. 7. Advanced adult failure to thrive and ambulatory dysfunction. The patient working with physical therapy and waiting for transfer to custodial for antibiotics and physical therapy. 8. Severe leukocytosis, improved with antibiotics. I will order another blood count for tomorrow. [place], [place] PROGRESS NOTE NAME: IZABELLA HANCOCK UNIT #: [id number] ROOM: 411 DOCTOR: MENDY TARANGO MD BIRTHDATE: [birth year] MENDY TARANGO MD CM:PNTRANS 0800 3 MENDY TARANGO MD 03/21/18924 interface
--- NOTE | ~2018-03-17 | PR ---
[place], [place] PROGRESS NOTE NAME: [facility]: [id number] UN[facility] #: [id number] ROOM: 411 DOCTOR: MENDY TARANGO MD BIRTHDATE: [birth year] DOS: SUBJECTIVE: The patient continues to feel better. He has wound VACs in place. PHYSICAL EXAMINATION: GENERAL APPEARANCE: The patient is alert and oriented x 3, in no visible distress. VITAL SIGNS: Blood pressure 120/72, heart rate 82 beats per minute, breathing 20 times per minute, temperature 98.4 degrees Fahrenheit. HEENT AND NECK: Exam within normal limits. CARDIOVASCULAR SYSTEM: Heart rate is regular in rate and rhythm. S1 and S2 normally audible. LUNGS: Clear to auscultation. ABDOMEN: Soft, nontender. No obvious organomegaly. Bowel sounds are present. EXTREMITIES: Without significant cyanosis or edema. IMPRESSION: 1. The patient with left foot infection, status post 2 surgeries and wound VAC placement for necrotizing fasciitis. White cell count has improved from 36,000 to 12,000 and he will continue antibiotics and physical therapy at the care home tomorrow. 2. Major depression, recurrent, mild, treated with Zoloft. 3. Type 2 diabetes mellitus. Blood sugars are being monitored and reasonably controlled. 4. Severe systolic type compensated congestive heart failure, followed by Dr. Winchester. 5. Obesity, BMI of 35.8. The patient working with dietary. 6. Coronary artery disease of the [place] vessels without chest pains. 7. Advanced adult failure to thrive. The patient needs rehabilitation. We are taking bedsore precautions and he is working with physical therapy. MENDY TARANGO MD CM:PNTRANS 1449 9 MENDY TARANGO MD 03/25/18309 interface
[2018-03-17 02:01] LABS: HEMATOCRIT 36.3 % (42.0-52.0); HEMOGLOBIN 11.6 g/dl (14.0-18.0); MEAN CELL VOLUME 90.8 fl (80.0-94.0); PLATELET COUNT AUTOMATED 245 10*3/uL (130-400); RED CELL DISTRI WIDTH 13.2 % (0-14.5); WHITE BLOOD COUNT 36.1 10*3/uL (4.8-10.8)
[2018-03-17 02:17] LABS: ALBUMIN 2.7 gm/dl (3.1-4.5); ALKALINE PHOSPHATASE 119 U/L (45-117); BUN 25 mg/dl (7-24); CHLORIDE 97 mmol/L (98-107); CREATININE 2.06 mg/dL (0.70-1.30); POTASSIUM 4.4 mmol/L (3.5-5.1); SGOT/AST 17 IU/L (3-35); SGPT/ALT 19 U/L (12-78); SODIUM 130 mmol/L (136-145); TOTAL PROTEIN 8.5 gm/dL (6.4-8.2)
[2018-03-17 02:18] LABS: TOTAL CELLS COUNTED 100 #CELLS
[2018-03-17 02:19] LABS: PLATELET SUFFICIENCY NORMAL (NORMAL)
[2018-03-17 02:22] LABS: TROPONIN I < 0.015 ng/ml (<0.045)
[2018-03-17 03:37] LABS: BILIRUBIN NEGATIVE (NEGATIVE); BLOOD 3+ (NEGATIVE); CLARITY SL CLOUDY (CLEAR); COLOR YELLOW (YELLOW); GLUCOSE 3+ (NEGATIVE); KETONE TRACE (NEGATIVE); LEUKO ESTERASE NEGATIVE (NEGATIVE); NITRITE NEGATIVE (NEGATIVE); PH 5.5 (5.0-9.0); SPECIFIC GRAVITY 1.015 (1.005-1.030)
[2018-03-17 03:45] LABS: EPITHELIAL CELLS 20-25
[2018-03-17 03:46] LABS: BACTERIA 3+; CALCIUM OXALATE CRYSTALS 1+
[2018-03-17] MEDS ORDERED: ZESTRIL20 MG PO (05:55)
[2018-03-18] VITALS (14 sets, daily range): BP systolic 84–139; BP diastolic 50–76
[2018-03-18 07:14] LABS: HEMATOCRIT 33.4 % (42.0-52.0); HEMOGLOBIN 10.8 g/dl (14.0-18.0); MEAN CELL VOLUME 90.5 fl (80.0-94.0); MEAN CORPUSCULAR HGB 29.3 pg (27.0-31.0); MEAN CORPUSCULAR HGB CONC 32.3 g/dl (33.0-37.0); MEAN PLATELET VOLUME 11.1 fl (9.6-12.3); PLATELET COUNT AUTOMATED 233 10*3/uL (130-400); RED BLOOD COUNT 3.69 10*6/uL (4.50-5.90); RED CELL DISTRI WIDTH 13.2 % (0-14.5); WHITE BLOOD COUNT 29.5 10*3/uL (4.8-10.8)
[2018-03-18 07:30] LABS: POTASSIUM 4.1 mmol/L (3.5-5.1)
[2018-03-18 07:31] LABS: CREATININE 1.5 mg/dL (0.70-1.30)
[2018-03-18 08:26] LABS: BASOPHILS 2 % (0-1); PLATELET SUFFICIENCY NORMAL (NORMAL); TOTAL CELLS COUNTED 100 #CELLS
[2018-03-19] VITALS: BP 102/65
[2018-03-19 07:34] LABS: BUN 26 mg/dl (7-24); CHLORIDE 105 mmol/L (98-107); CREATININE 1.32 mg/dL (0.70-1.30); HEMATOCRIT 31.2 % (42.0-52.0); HEMOGLOBIN 10.2 g/dl (14.0-18.0); MEAN CELL VOLUME 90.2 fl (80.0-94.0); MEAN CORPUSCULAR HGB 29.5 pg (27.0-31.0); MEAN CORPUSCULAR HGB CONC 32.7 g/dl (33.0-37.0); MEAN PLATELET VOLUME 10.7 fl (9.6-12.3); PLATELET COUNT AUTOMATED 228 10*3/uL (130-400); POTASSIUM 3.8 mmol/L (3.5-5.1); RED BLOOD COUNT 3.46 10*6/uL (4.50-5.90); RED CELL DISTRI WIDTH 13.4 % (0-14.5); SODIUM 138 mmol/L (136-145); WHITE BLOOD COUNT 23.6 10*3/uL (4.8-10.8)
[2018-03-19 08:00] VITALS: BP 110/58
[2018-03-19 08:05] LABS: BASOPHILS 1 % (0-1); PLATELET SUFFICIENCY NORMAL (NORMAL); TOTAL CELLS COUNTED 100 #CELLS
[2018-03-19 12:00] VITALS: BP 102/56
[2018-03-19 16:00] VITALS: BP 101/68
[2018-03-19 20:00] VITALS: BP 142/65
[2018-03-20] VITALS (9 sets, daily range): BP systolic 108–127; BP diastolic 58–80
[2018-03-20 07:04] LABS: HEMATOCRIT 32.8 % (42.0-52.0); HEMOGLOBIN 10.2 g/dl (14.0-18.0); MEAN CELL VOLUME 92.1 fl (80.0-94.0); MEAN CORPUSCULAR HGB 28.7 pg (27.0-31.0); MEAN CORPUSCULAR HGB CONC 31.1 g/dl (33.0-37.0); MEAN PLATELET VOLUME 10.5 fl (9.6-12.3); PLATELET COUNT AUTOMATED 262 10*3/uL (130-400); RED BLOOD COUNT 3.56 10*6/uL (4.50-5.90); RED CELL DISTRI WIDTH 13.6 % (0-14.5)
[2018-03-20 07:27] LABS: CREATININE 1.48 mg/dL (0.70-1.30); POTASSIUM 3.7 mmol/L (3.5-5.1)
[2018-03-20 07:44] LABS: PLATELET SUFFICIENCY NORMAL (NORMAL); POLYCHROMASIA SLIGHT; ROULEAUX MODERATE; TOTAL CELLS COUNTED 100 #CELLS
[2018-03-21] VITALS: BP 135/65
[2018-03-21 08:00] VITALS: BP 120/66
[2018-03-21 12:00] VITALS: BP 138/71
[2018-03-21 16:00] VITALS: BP 121/67
[2018-03-21 16:29] LABS: BUN 21 mg/dl (7-24); CHLORIDE 109 mmol/L (98-107); CREATININE 1.36 mg/dL (0.70-1.30); POTASSIUM 4.2 mmol/L (3.5-5.1); SODIUM 141 mmol/L (136-145)
[2018-03-21 20:00] VITALS: BP 139/62
[2018-03-22] VITALS: BP 126/63
[2018-03-22 05:47] LABS: BUN 17 mg/dl (7-24); CHLORIDE 110 mmol/L (98-107); CREATININE 1.31 mg/dL (0.70-1.30); SODIUM 142 mmol/L (136-145)
[2018-03-22 06:02] LABS: HEMATOCRIT 30.8 % (42.0-52.0); HEMOGLOBIN 9.7 g/dl (14.0-18.0); MEAN CELL VOLUME 91.7 fl (80.0-94.0); MEAN CORPUSCULAR HGB 28.9 pg (27.0-31.0); MEAN CORPUSCULAR HGB CONC 31.5 g/dl (33.0-37.0); PLATELET COUNT AUTOMATED 260 10*3/uL (130-400); RED BLOOD COUNT 3.36 10*6/uL (4.50-5.90); RED CELL DISTRI WIDTH 13.6 % (0-14.5); WHITE BLOOD COUNT 15.1 10*3/uL (4.8-10.8)
[2018-03-22 07:26] LABS: PLATELET SUFFICIENCY NORMAL (NORMAL); POLYCHROMASIA SLIGHT; TOTAL CELLS COUNTED 100 #CELLS; TOXIC GRANULATION SLIGHT
[2018-03-22 08:00] VITALS: BP 126/68
[2018-03-22 12:00] VITALS: BP 128/72
[2018-03-22 16:00] VITALS: BP 137/51
[2018-03-22 20:00] VITALS: BP 137/51
[2018-03-22 22:00] VITALS: BP 137/51
[2018-03-23] VITALS: BP 125/70
[2018-03-23 05:56] LABS: HEMATOCRIT 31.3 % (42.0-52.0); HEMOGLOBIN 9.9 g/dl (14.0-18.0); MEAN CELL VOLUME 91.8 fl (80.0-94.0); MEAN CORPUSCULAR HGB CONC 31.6 g/dl (33.0-37.0); MEAN PLATELET VOLUME 10.1 fl (9.6-12.3); PLATELET COUNT AUTOMATED 257 10*3/uL (130-400); RED BLOOD COUNT 3.41 10*6/uL (4.50-5.90); RED CELL DISTRI WIDTH 13.5 % (0-14.5); WHITE BLOOD COUNT 14.6 10*3/uL (4.8-10.8)
[2018-03-23 06:49] LABS: BASOPHILS 2 % (0-1); PLATELET SUFFICIENCY NORMAL (NORMAL); TOTAL CELLS COUNTED 100 #CELLS
[2018-03-23 07:33] VITALS: BP 120/70
[2018-03-23 08:00] VITALS: BP 141/79
[2018-03-23 12:00] VITALS: BP 125/80
[2018-03-23 16:00] VITALS: BP 124/73
[2018-03-23 20:00] VITALS: BP 120/68
[2018-03-23 22:30] LABS: BUN 16 mg/dl (7-24); CHLORIDE 108 mmol/L (98-107); CREATININE 1.37 mg/dL (0.70-1.30); POTASSIUM 4.1 mmol/L (3.5-5.1); SODIUM 141 mmol/L (136-145)
[2018-03-24] VITALS: BP 120/63
[2018-03-24 06:46] LABS: HEMATOCRIT 31.5 % (42.0-52.0); MEAN CORPUSCULAR HGB 28.9 pg (27.0-31.0); MEAN CORPUSCULAR HGB CONC 31.7 g/dl (33.0-37.0); PLATELET COUNT AUTOMATED 256 10*3/uL (130-400); RED BLOOD COUNT 3.46 10*6/uL (4.50-5.90); RED CELL DISTRI WIDTH 13.5 % (0-14.5); WHITE BLOOD COUNT 12.6 10*3/uL (4.8-10.8)
[2018-03-24 07:42] LABS: TOTAL CELLS COUNTED 100 #CELLS
[2018-03-24 07:43] LABS: PLATELET SUFFICIENCY NORMAL (NORMAL); TOXIC GRANULATION SLIGHT
[2018-03-24 08:00] VITALS: BP 140/76
[2018-03-24 12:00] VITALS: BP 120/72
[2018-03-24 16:00] VITALS: BP 140/70
[2018-03-24 20:00] VITALS: BP 114/57
[2018-03-25] VITALS: BP 141/66
[2018-03-25 08:00] VITALS: BP 140/71
[2018-03-25 12:00] VITALS: BP 150/76
[2018-04-12] MEDS ORDERED: DULCOLAX10 M1 R (11:21)
[2018-04-12] MEDS ORDERED: GLUCAGON EMERGEN1 M1 IJ (11:22)
[2018-04-12] MEDS ORDERED: FLEET ENEMA 13133 ML R (11:22)
[2018-04-12] MEDS ORDERED: GLUCOSE15 GM/59 M PO (11:23)
[2018-04-12] MEDS ORDERED: MOM30 M1 PO (11:24)
[2018-04-12] MEDS ORDERED: CEFTRIAXON2 GM/50 ML IV (11:26)
== END 2018-03-25 16:45 | disposition other institution (70) | DRG 853 ==
LOC: ED 01:42 → EDHOLD 04:29 → 4E 04:29
PROVIDERS: Emergency Medicine; Internal Medicine; Internal Medicine Cardiovascular Disease
PROC: 0Y6Y0Z1 Detachment at Left 5th Toe, High, Open Approach (ICD-10-PCS; principal; 2018-03-18)
PROC: 0HRNXK3 Replacement of Left Foot Skin with Nonautologous Tissue Substitute, Full Thickness, External Approach (ICD-10-PCS; 2018-03-20)
PROC: 0QBP0ZZ Excision of Left Metatarsal, Open Approach (ICD-10-PCS; 2018-03-20)
PROC: 02HV33Z Insertion of Infusion Device into Superior Vena Cava, Percutaneous Approach (ICD-10-PCS; 2018-03-21)
DX: A41.9 Sepsis, unspecified organism (principal); M72.6 Necrotizing fasciitis; N17.0 Acute kidney failure with tubular necrosis; L03.116 Cellulitis of left lower limb; N39.0 Urinary tract infection, site not specified; E87.1 Hypo-osmolality and hyponatremia; F33.0 Major depressive disorder, recurrent, mild; I13.0 Hypertensive heart and chronic kidney disease with heart failure and stage 1 through stage 4 chronic kidney disease, or unspecified chronic kidney disease; I50.22 Chronic systolic (congestive) heart failure; M86.172 Other acute osteomyelitis, left ankle and foot; L02.612 Cutaneous abscess of left foot; I95.1 Orthostatic hypotension; Z95.5 Presence of coronary angioplasty implant and graft; K21.9 Gastro-esophageal reflux disease without esophagitis; E11.22 Type 2 diabetes mellitus with diabetic chronic kidney disease; I25.5 Ischemic cardiomyopathy; E78.2 Mixed hyperlipidemia; E11.69 Type 2 diabetes mellitus with other specified complication; E11.21 Type 2 diabetes mellitus with diabetic nephropathy; D64.9 Anemia, unspecified; E66.9 Obesity, unspecified; I25.10 Atherosclerotic heart disease of native coronary artery without angina pectoris; R53.1 Weakness; R62.7 Adult failure to thrive; E11.65 Type 2 diabetes mellitus with hyperglycemia; N18.3 Chronic kidney disease, stage 3 (moderate); Z68.35 Body mass index [BMI] 35.0-35.9, adult; Z91.048 Other nonmedicinal substance allergy status; Z83.3 Family history of diabetes mellitus; Z82.49 Family history of ischemic heart disease and other diseases of the circulatory system; Z82.3 Family history of stroke; Z95.810 Presence of automatic (implantable) cardiac defibrillator; I25.2 Old myocardial infarction; Z79.4 Long term (current) use of insulin; Z86.73 Personal history of transient ischemic attack (TIA), and cerebral infarction without residual deficits; Z80.3 Family history of malignant neoplasm of breast; Z79.82 Long term (current) use of aspirin; Z79.899 Other long term (current) drug therapy; Z79.02 Long term (current) use of antithrombotics/antiplatelets; Z79.84 Long term (current) use of oral hypoglycemic drugs

== ENCOUNTER → 2018-04-12 | Outpatient (CLI) | payer MEDICARE ==
[~2018-04-12] MED LIST changes: +CEFTRIAXON2 GM/50 ML IV; +DULCOLAX10 M1 R; +FLEET ENEMA 13133 ML R; +GLUCAGON EMERGEN1 M1 IJ; +GLUCOSE15 GM/59 M PO; +MOM30 M1 PO
--- NOTE | ~2018-04-12 | EKG ---
[place], [place] ELECTROCARDIOGRAM REPORT NAME: IZABELLA HANCOCK UNIT #: [id number] ROOM: DOCTOR: EPIPHANY DRAFT REPORT BIRTHDATE: [birth year] [facility] Test Date: 2018-04-12 Test Time: 12:31:21 Pat Name: IZABELLA HANCOCK Department: Room: Gender: M Parts Identifier: Sharon Alfred : 1950 Requested By: ANTONIO SALINAS Order Number: [id number] Reading MD: Nam Salcedo MD Measurements Intervals [place] Rate: 119 P: [place]: QRS: -37 QRSD: 96 T: 111 QT: 351 QTc: 494 Interpretive Statements Sinus tachycardia Left axis deviation Anteroseptal infarct, old Abnormal T, consider ischemia, lateral leads Compared to ECG 03/17/2018 01:59:20 No significant change Electronically Signed On 04-12-2018 11:20:36 PST by Nam Salcedo MD CM:EKGRPT:ELECTROCARDIOGRAM REPORT [id number] ANTONIO SALINAS DPM EPIPHANY DRAFT REPORT ANTONIO SALINAS DPM
[2018-04-12 12:33] LABS: BASO # 0.1 10*3/uL (0.0-0.1); BASO % 0.8 % (0.0-1.0); EOS # 0.1 10*3/uL (0.0-0.4); EOS % 0.9 % (1.0-4.0); HEMATOCRIT 35.9 % (42.0-52.0); HEMOGLOBIN 11.7 g/dl (14.0-18.0); LYMPH # 2.1 10*3/uL (1.3-4.4); LYMPH % 16.9 % (27.0-41.0); MEAN CELL VOLUME 89.5 fl (80.0-94.0); MEAN CORPUSCULAR HGB 29.2 pg (27.0-31.0); MEAN CORPUSCULAR HGB CONC 32.6 g/dl (33.0-37.0); MONO # 1.3 10*3/uL (0.1-1.0); MONO % 10.7 % (3.0-9.0); NEUT # 8.8 10*3/uL (2.3-7.9); NEUT % 70.2 % (47.0-73.0); PLATELET COUNT AUTOMATED 288 10*3/uL (130-400); RED BLOOD COUNT 4.01 10*6/uL (4.50-5.90); WHITE BLOOD COUNT 12.5 10*3/uL (4.8-10.8)
[2018-04-12 12:42] LABS: POTASSIUM 4.8 mmol/L (3.5-5.1)
== END ==
LOC: LAB 09:50
PROVIDERS: Podiatrist
DX: Z01.818 Encounter for other preprocedural examination (principal); R00.0 Tachycardia, unspecified; E11.621 Type 2 diabetes mellitus with foot ulcer; I25.2 Old myocardial infarction

== ENCOUNTER → 2018-04-24 | Day surgery (SDC) | payer MEDICARE ==
[2018-04-12 11:46] VITALS: BP 122/72
[~2018-04-24] VITALS: Ht 182.8 cm; Wt 117.9 kg
[~2018-04-24] MED LIST changes: +DOXYCYCLINE100 M3 PO; +LEVOTHYROXINE50 MCG PO; +ULTRAM50 MG PO
--- NOTE | ~2018-04-24 | WRIGHTHP ---
[place], [place] PATIENT HISTORY AND PHYSICAL EXAM NAME: IZABELLA HANCOCK [facility] #: [id number] UNIT #: [id number] ROOM: DOCTOR: ANTONIO SALINAS DPM BIRTHDATE: [birth year] DOS: 04/24/2018 INDICATION: The patient is seen for followup wound on his left foot. He is aware of pros, cons, risks and benefits in particular about loss of the fourth toe. With this in mind, the patient is aware of pros, cons, risks, benefits, overcorrection, undercorrection, recurrence, numbness, limb loss, , DVT, PE, CRPS, RSD. He understands anything can happen, nothing should happen. With this in mind, the patient was set for surgery today, 04/24/2018, at [facility] as an outpatient procedure. He is set today for debridement, application of wound VAC and application of topical dressing. With this in mind, he understands the pros, cons, risks and benefits. He understands the perioperative management, which was proposed to him prior to surgery. ANTONIO SALINAS DPM CM:HISPHYS:PATIENT HISTORY AND PHYSICAL EXAMINATION 1153 1218 ANTONIO SALINAS DPM 04/24/18 1313 interface
--- NOTE | ~2018-04-24 | PR ---
[place], [place] PROGRESS NOTE NAME: IZABELLA HANCOCK [facility] #: [id number] UNIT #: [id number] ROOM: DOCTOR: ANTONIO SALINAS DPM BIRTHDATE: [birth year] DOS: 04/24/2018 LOWER EXTREMITY PHYSICAL EXAMINATION: VASCULAR: He has palpable pedal pulses 2/4, DP and PT. Good cap refill time. He has some pretibial edema of his left lower extremity. NEUROLOGICAL: He has lack of protective sensation to his left lower extremity. DERMATOLOGICAL: He has wounds that measure 6.0 x 7.5 x 0.5, full thickness in nature with no cardinal signs of infection clinically, but he does have some contamination in there and will reach out to ID to adjust his antibiotics as needed. MUSCULOSKELETAL: He has a tight posterior muscle group. ORTHOPEDIC: Consistent with osteomyelitis of the left forefoot. ANTONIO SALINAS DPM CM:PNTRANS 1153 1223 ANTONIO SALINAS DPM 04/24/18 1222 interface
--- NOTE | ~2018-04-24 | O ---
[place], [place] OPERATIVE NOTE NAME: IZABELLA HANCOCK UNIT #: [id number] ROOM: DOCTOR: RITA KNIGHTANTONIO BIRTHDATE: [birth year] DOS: 04/24/2018 SURGEON: Antonio Salinas DPM ASSISTANTS: 1. Dr. Jaiden Harris, fellow. 2. Donald Cassidy, PGY1. PREOPERATIVE DIAGNOSES: 1. Open wound, diabetic ulcer of left foot. 2. Osteomyelitis of his left forefoot. POSTOPERATIVE DIAGNOSES: 1. Open wound, diabetic ulcer of left foot. 2. Osteomyelitis of his left forefoot. PROCEDURES: 1. Bone debridement, bone biopsy and debridement of his left forefoot. 2. Application of PriMatrix. 3. Application of negative pressure therapy. The patient was seen in preoperative holding area and appropriate site marking was performed. He understood and concurred with perioperative management as well. He was brought into OR and placed on a well-padded OR table where anesthesia was achieved. Once the anesthesia was achieved, his foot and leg were prepped and draped in usual fashion on the left side. PROCEDURE #1: BONE DEBRIDEMENT, BONE BIOPSY, AND DEBRIDEMENT OF LEFT FOREFOOT: At this point in time, a full thickness sharp excisional debridement was performed removing devitalized necrotic tissue as well as bone. Bone was sent for Gram stain, aerobic, anaerobic, fungal acid fast as well as bone biopsy and permanent biopsy. Next, soft tissue was sent for biopsy as well as Gram stain, aerobic, anaerobic, fungal acid fast as well as removing all devitalized necrotic tissue to help pink, healthy bleeding of left lower extremity. PROCEDURE #2: APPLICATION OF PRIMATRIX SKINGRAFT SUBSTITUE FOR INTEGRA: At this point in time, PriMatrix was applied to the left foot. This was stapled down and fit and stacked to improve collagen in depth and help promote granulation of the left foot. PROCEDURE #3: APPLICATION OF NEGATIVE PRESSURE THERAPY: Wound VAC was applied. It was applied in usual sterile fashion. A dry sterile dressing, compression rings from toes to tibial tubercle was performed. He tolerated the procedure and anesthesia well and left the OR with vital signs stable and vascular status intact. [place], [place] OPERATIVE NOTE NAME: IZABELLA HANCOCK UNIT #: [id number] ROOM: DOCTOR: ANTONIO SALINAS DPM BIRTHDATE: [birth year] ANTONIO SALINAS DPM CM:OPRECORD:OPERATIVE NOTE 1153 1238 ANTONIO SALINAS DPM 04/25/18 0745 interface
[2018-04-24 08:00] VITALS: BP 132/75
[2018-04-24 09:30] VITALS: BP 109/71
[2018-04-24 09:45] VITALS: BP 131/72
[2018-04-24 10:00] VITALS: BP 132/78
[2018-04-25 16:10] LABS: ACID FAST SPEC PROCESSING Tissue Grinding (.)
[2018-04-25 16:10] LABS: ACID FAST SPEC PROCESSING Tissue Grinding (.)
[2018-06-05 09:16] LABS: ACID FAST CULTURE Negative (.)
[2018-06-05 09:16] LABS: ACID FAST CULTURE Negative (.)
== END | disposition home or self-care (01) ==
LOC: SDC 04-12 11:00
PROVIDERS: Podiatrist
DX: E11.621 Type 2 diabetes mellitus with foot ulcer (principal); L97.524 Non-pressure chronic ulcer of other part of left foot with necrosis of bone; M86.272 Subacute osteomyelitis, left ankle and foot; I50.22 Chronic systolic (congestive) heart failure; E11.610 Type 2 diabetes mellitus with diabetic neuropathic arthropathy; I42.0 Dilated cardiomyopathy; F33.41 Major depressive disorder, recurrent, in partial remission; I11.0 Hypertensive heart disease with heart failure; F41.9 Anxiety disorder, unspecified; E66.9 Obesity, unspecified; Z79.82 Long term (current) use of aspirin; Z88.3 Allergy status to other anti-infective agents; Z79.4 Long term (current) use of insulin; Z86.73 Personal history of transient ischemic attack (TIA), and cerebral infarction without residual deficits; Z95.810 Presence of automatic (implantable) cardiac defibrillator; Z79.899 Other long term (current) drug therapy; Z98.49 Cataract extraction status, unspecified eye; Z68.35 Body mass index [BMI] 35.0-35.9, adult; Z87.442 Personal history of urinary calculi; Z83.3 Family history of diabetes mellitus; Z82.3 Family history of stroke; Z82.49 Family history of ischemic heart disease and other diseases of the circulatory system

== ENCOUNTER → 2018-05-17 | Outpatient (CLI) | payer MEDICARE ==
[~2018-05-17] MED LIST changes: -DOXYCYCLINE100 M3 PO; -LEVOTHYROXINE50 MCG PO; -ULTRAM50 MG PO
== END | disposition home or self-care (01) ==
LOC: LAB 08:14
DX: E78.00 Pure hypercholesterolemia, unspecified (principal); M86.9 Osteomyelitis, unspecified

== ENCOUNTER → 2018-05-27 | Outpatient (CLI) | payer MEDICARE ==
[~2018-05-27] MED LIST changes: +DOXYCYCLINE100 M3 PO; +LEVOTHYROXINE50 MCG PO; +ULTRAM50 MG PO
[2018-05-27 10:54] LABS: BASO # 0.1 10*3/uL (0.0-0.1); BASO % 0.8 % (0.0-1.0); EOS # 0.2 10*3/uL (0.0-0.4); EOS % 1.4 % (1.0-4.0); HEMATOCRIT 37.8 % (42.0-52.0); HEMOGLOBIN 11.9 g/dl (14.0-18.0); LYMPH # 2.3 10*3/uL (1.3-4.4); LYMPH % 18.8 % (27.0-41.0); MEAN CELL VOLUME 89.2 fl (80.0-94.0); MEAN CORPUSCULAR HGB 28.1 pg (27.0-31.0); MEAN CORPUSCULAR HGB CONC 31.5 g/dl (33.0-37.0); MONO # 1.1 10*3/uL (0.1-1.0); MONO % 8.6 % (3.0-9.0); NEUT # 8.8 10*3/uL (2.3-7.9); NEUT % 70.1 % (47.0-73.0); PLATELET COUNT AUTOMATED 237 10*3/uL (130-400); RED BLOOD COUNT 4.24 10*6/uL (4.50-5.90); RED CELL DISTRI WIDTH 14.7 % (0-14.5); WHITE BLOOD COUNT 12.5 10*3/uL (4.8-10.8)
[2018-05-27 11:09] LABS: CREATININE 1.49 mg/dL (0.70-1.30); POTASSIUM 5.2 mmol/L (3.5-5.1)
== END | disposition home or self-care (01) ==
LOC: LAB 10:09
PROVIDERS: Internal Medicine
DX: M86.8X7 Other osteomyelitis, ankle and foot (principal)

== ENCOUNTER → 2018-05-31 | Outpatient (CLI) | payer MEDICARE ==
[2018-05-31 09:18] LABS: BASO # 0.1 10*3/uL (0.0-0.1); BASO % 0.9 % (0.0-1.0); EOS # 0.3 10*3/uL (0.0-0.4); HEMATOCRIT 38.2 % (42.0-52.0); HEMOGLOBIN 11.9 g/dl (14.0-18.0); LYMPH # 2.5 10*3/uL (1.3-4.4); LYMPH % 19.7 % (27.0-41.0); MEAN CORPUSCULAR HGB 27.7 pg (27.0-31.0); MEAN CORPUSCULAR HGB CONC 31.2 g/dl (33.0-37.0); MEAN PLATELET VOLUME 11.1 fl (9.6-12.3); MONO # 1.1 10*3/uL (0.1-1.0); MONO % 8.4 % (3.0-9.0); NEUT # 8.6 10*3/uL (2.3-7.9); NEUT % 68.8 % (47.0-73.0); PLATELET COUNT AUTOMATED 226 10*3/uL (130-400); RED BLOOD COUNT 4.29 10*6/uL (4.50-5.90); RED CELL DISTRI WIDTH 14.8 % (0-14.5); WHITE BLOOD COUNT 12.6 10*3/uL (4.8-10.8)
[2018-05-31 09:35] LABS: BUN 25 mg/dl (7-24); CHLORIDE 108 mmol/L (98-107); CREATININE 1.41 mg/dL (0.70-1.30); POTASSIUM 4.7 mmol/L (3.5-5.1); SODIUM 139 mmol/L (136-145)
== END | disposition home or self-care (01) ==
LOC: LAB 08:26
PROVIDERS: Internal Medicine
DX: Z01.811 Encounter for preprocedural respiratory examination (principal); M86.8X8 Other osteomyelitis, other site; I21.9 Acute myocardial infarction, unspecified; D65 Disseminated intravascular coagulation [defibrination syndrome]

== ENCOUNTER → 2018-06-12 | Day surgery (SDC) | payer MEDICARE ==
[~2018-06-12] VITALS: Ht 180.3 cm; Wt 109.8 kg
--- NOTE | ~2018-06-12 | WRIGHTHP ---
[place], [place] PATIENT HISTORY AND PHYSICAL EXAM NAME: IZABELLA HANCOCK [facility] #: [id number] UNIT #: [id number] ROOM: DOCTOR: ANTONIO SALINAS DPM BIRTHDATE: [birth year] DOS: 06/12/2018 INDICATION NOTE: This patient has an open wound of his left ankle, measures 5 cm x 3 cm. There are no cardinal signs of infection or drainage. There is good granulation, pink healthy tissue. He has been treated previously with incision and drainage, bone biopsy, partial amputation. At this time, the patient is here for skin graft for repair of wound of left lower extremity. With this in mind, he is aware of pros, cons, risks, benefits, overcorrection, undercorrection, recurrence of stump infection, worsening, DVT, PE, limb loss, RSD, CRPS etc. He understands that anything can happen, nothing should happen. With this in mind, he signed consent for split thickness skin graft from his left thigh to his left foot, partial amputation of his fourth toe and a tissue transfer of his fourth toe to his left foot. The patient signed the consent and agreed to site marking. He agreed with perioperative management. He agreed with and understood the pros, cons, risks and benefits. His was present as well. ANTONIO SALINAS DPM CM:HISPHYS:PATIENT HISTORY AND PHYSICAL EXAMINATION 1252 1457 ANTONIO SALINAS DPM 07/03/18 1512 interface
--- NOTE | ~2018-06-12 | O ---
[place], [place] OPERATIVE NOTE NAME: IZABELLA HANCOCK [facility] #: [id number] UNIT #: [id number] ROOM: DOCTOR: ANTONIO SALINAS DPM BIRTHDATE: [birth year] DOS: 06/12/2018 SURGEON: Antonio Salinas DPM. ASSISTANTS: 1. Dr. Jaiden Harris, fellow. 2. Dr. Gabriel Macedo, PGY2. PREOPERATIVE DIAGNOSES: 1. Diabetic ulcer, left dorsal foot, 5 cm x 3 cm. 2. Previous history of osteomyelitis fourth toe, left. PROCEDURE #1: Bone debridement: The patient was seen in preop holding area and appropriate site marking was performed. He and his in particular agreed and signed the consent. He was brought in the OR and placed on a well-padded OR table. Once he was on the OR table, anesthesia was achieved, his left foot and leg were prepped and draped in usual sterile fashion. An appropriate timeout was performed. Everybody concurred with the timeout. At this time, attention was directed to the fourth toe where eschar was there and a full thickness sharp excisional debridement was performed. This was performed, the bone was debrided extensively. Bone was removed and bone biopsy. Once bone was removed, the tissues were pink, healthy in nature. PROCEDURE #2: Preparation of recipient site: At this time full thickness sharp excisional debridement was performed removing devitalized necrotic tissue. Tissue sent for preparing the joint for skin graft and the area was pink, healthy and granular. PROCEDURE #3: Rotational graft tissue transfer of the fourth toe to the wound site: At this point in time, with all bone debris removed, the tissues were modeled and tissues were elevated and mobilized to cover as much tissue lying back proximally. This was sutured with 2-0 nylon, completing this transfer to the adjacent of the wound at 5.3 cm. This covered approximately one third to one-half of the area of the open wound. PROCEDURE #4: [place] of split thickness skin graft from left thigh to left foot. At this time, dermatome was set on 0.16/100 of an inch. Mineral oil was applied to the thigh. At this point in time, the skin graft was harvested with 1 inch blade and this was applied to wound. The skin was brought over to the dorsum of the foot and was stapled firmly and adequately covering the remaining portion of the open wound. A topical thrombin was placed on the thigh and then after time passed by, a Xeroform dressing, OpSite, 4 x 4s were applied to the left thigh. Once the wound and the tissue was completely compressed to the foot, a dressing with Adaptic, mineral oil, 4 x 4s, Key, sterile dressing was applied. Multiple Kerlix, 4 x 4s, Key and Nura bandage were applied to stabilize this area. A new Cam boot was applied to support the extremity. He was instructed to do nothing. He is to use immobilizers, stay nonweightbearing as much as possible. He has a followup in our office in 1 week. [place], [place] OPERATIVE NOTE NAME: IZABELLA HANCOCK UNIT #: [id number] ROOM: DOCTOR: ANTONIO SALINAS DPM BIRTHDATE: [birth year] ANTONIO SALINAS DPM CM:OPRECORD:OPERATIVE NOTE 1252 1635 ANTONIO SALINAS DPM 07/03/18 1606 interface
--- NOTE | ~2018-06-12 | WRIGHTHP ---
[place], [place] PATIENT HISTORY AND PHYSICAL EXAM NAME: IZABELLA HANCOCK [facility] #: [id number] UNIT #: [id number] ROOM: DOCTOR: ANTONIO SALINAS DPM BIRTHDATE: [birth year] DOS: 06/12/2018 LOWER EXTREMITY PHYSICAL EXAMINATION: VASCULAR: He has palpable pedal pulses, 1/4 DP and PT bilaterally. Good cap refill time. He has had noninvasive vascular studies, which demonstrated adequate perfusion. NEUROLOGIC: He has complete loss of protective sensation secondary to diabetic peripheral neuropathy. DERMATOLOGIC: He has a wound that measures 5 x 3 cm. No cardinal signs of infection, drainage, undermining tunneling. There is pink, healthy in nature tissue noted. His wound is irregular and it is very fluffy; however, we will remove the tissue to try to salvage the foot as much as possible. MUSCULOSKELETAL: He has unstable, healthy skin. ORTHOPEDIC EXAM: He has previous history of osteomyelitis that has been treated at this point in time. He appears to be responding well. ANTONIO SALINAS DPM CM:HISPHYS:PATIENT HISTORY AND PHYSICAL EXAMINATION 1252 1530 ANTONIO SALINAS DPM 07/03/18 1529 interface
[2018-06-12 09:46] VITALS: BP 127/79
[2018-06-12 12:20] VITALS: BP 119/65
[2018-06-12 12:35] VITALS: BP 127/78
[2018-06-12 12:50] VITALS: BP 141/80
[2018-06-12 13:05] VITALS: BP 124/73
[2018-06-14 14:07] LABS: ACID FAST SPEC PROCESSING Tissue Grinding (.)
[2018-06-14 14:07] LABS: ACID FAST SPEC PROCESSING Tissue Grinding (.)
[2018-07-25 12:07] LABS: ACID FAST CULTURE Negative (.)
[2018-07-25 12:07] LABS: ACID FAST CULTURE Negative (.)
== END | disposition home or self-care (01) ==
LOC: SDC 05-31 12:30
PROVIDERS: Podiatrist
DX: E10.621 Type 1 diabetes mellitus with foot ulcer (principal); E10.69 Type 1 diabetes mellitus with other specified complication; L97.523 Non-pressure chronic ulcer of other part of left foot with necrosis of muscle; M86.172 Other acute osteomyelitis, left ankle and foot; I25.2 Old myocardial infarction; I25.10 Atherosclerotic heart disease of native coronary artery without angina pectoris; F32.9 Major depressive disorder, single episode, unspecified; E66.9 Obesity, unspecified; Z68.33 Body mass index [BMI] 33.0-33.9, adult; I10 Essential (primary) hypertension; Z98.890 Other specified postprocedural states; Z98.41 Cataract extraction status, right eye; Z98.42 Cataract extraction status, left eye; Z79.82 Long term (current) use of aspirin; Z79.899 Other long term (current) drug therapy; Z88.3 Allergy status to other anti-infective agents; Z86.73 Personal history of transient ischemic attack (TIA), and cerebral infarction without residual deficits; Z95.810 Presence of automatic (implantable) cardiac defibrillator; Z95.5 Presence of coronary angioplasty implant and graft; Z87.442 Personal history of urinary calculi; Z82.49 Family history of ischemic heart disease and other diseases of the circulatory system; Z83.3 Family history of diabetes mellitus

== ENCOUNTER → 2019-06-02 | Outpatient (CLI) | payer MEDICARE ==
[2019-06-02 11:09] LABS: BASO # 0.1 10*3/uL (0.0-0.1); EOS # 0.2 10*3/uL (0.0-0.4); EOS % 2.2 % (1.0-4.0); HEMATOCRIT 40.8 % (42.0-52.0); HEMOGLOBIN 12.9 g/dl (14.0-18.0); LYMPH # 2.3 10*3/uL (1.3-4.4); LYMPH % 22.4 % (27.0-41.0); MEAN CELL VOLUME 91.9 fl (80.0-94.0); MEAN CORPUSCULAR HGB 29.1 pg (27.0-31.0); MEAN CORPUSCULAR HGB CONC 31.6 g/dl (33.0-37.0); MONO # 0.8 10*3/uL (0.1-1.0); MONO % 7.5 % (3.0-9.0); NEUT # 6.7 10*3/uL (2.3-7.9); NEUT % 66.5 % (47.0-73.0); PLATELET COUNT AUTOMATED 199 10*3/uL (130-400); RED BLOOD COUNT 4.44 10*6/uL (4.50-5.90); RED CELL DISTRI WIDTH 13.7 % (0-14.5)
[2019-06-02 12:01] LABS: ALBUMIN 3.5 gm/dl (3.1-4.5); CREATININE 1.6 mg/dL (0.70-1.30); FREE T4 0.78 ng/dl (0.76-1.46); POTASSIUM 4.4 mmol/L (3.5-5.1)
[2019-06-02 12:06] LABS: THYROID STIM HORMONE (HS) 6.85 uIU/ml (0.358-4.75)
[2019-06-02 12:11] LABS: VITAMIN D, 25-HYDROXY 21.3 ng/mL (30-100)
== END | disposition home or self-care (01) ==
LOC: LAB 10:39
PROVIDERS: Internal Medicine
DX: I10 Essential (primary) hypertension (principal); E11.65 Type 2 diabetes mellitus with hyperglycemia; E78.2 Mixed hyperlipidemia; E55.9 Vitamin D deficiency, unspecified; D52.9 Folate deficiency anemia, unspecified; D51.9 Vitamin B12 deficiency anemia, unspecified

== ENCOUNTER → 2019-06-12 | Outpatient (CLI) | payer MEDICARE | END | disposition home or self-care (01) | LOC: US 12:54 | DX: I65.23 Occlusion and stenosis of bilateral carotid arteries (principal); I10 Essential (primary) hypertension; E11.9 Type 2 diabetes mellitus without complications ==

== ENCOUNTER → 2020-03-31 | Outpatient (CLI) | payer MEDICARE ==
[2020-03-31 14:24] LABS: BASO # 0.1 10*3/uL (0.0-0.1); BASO % 0.9 % (0.0-1.0); EOS # 0.2 10*3/uL (0.0-0.4); EOS % 1.1 % (1.0-4.0); HEMATOCRIT 41.9 % (42.0-52.0); LYMPH # 2.4 10*3/uL (1.3-4.4); LYMPH % 16.7 % (27.0-41.0); MEAN CELL VOLUME 89.1 fl (80.0-94.0); MEAN CORPUSCULAR HGB 28.1 pg (27.0-31.0); MEAN CORPUSCULAR HGB CONC 31.5 g/dl (33.0-37.0); MEAN PLATELET VOLUME 10.8 fl (9.6-12.3); MONO # 1.1 10*3/uL (0.1-1.0); MONO % 7.9 % (3.0-9.0); NEUT # 10.3 10*3/uL (2.3-7.9); NEUT % 72.9 % (47.0-73.0); PLATELET COUNT AUTOMATED 259 10*3/uL (130-400); RED CELL DISTRI WIDTH 13.4 % (0-14.5); WHITE BLOOD COUNT 14.1 10*3/uL (4.8-10.8)
[2020-03-31 14:56] LABS: ALBUMIN 3.4 gm/dl (3.1-4.5); CREATININE 1.58 mg/dL (0.70-1.30); POTASSIUM 4.4 mmol/L (3.5-5.1)
[2020-03-31 15:03] LABS: FREE T4 0.87 ng/dl (0.76-1.46); THYROID STIM HORMONE (HS) 3.8 uIU/ml (0.358-4.75); TOTAL PROTEIN 8.2 gm/dL (6.4-8.2)
[2020-03-31 15:30] LABS: VITAMIN D, 25-HYDROXY 17.8 ng/mL (30-100)
== END | disposition home or self-care (01) ==
LOC: LAB 13:57
PROVIDERS: ATTEND Internal Medicine
DX: Z00.00 Encounter for general adult medical examination without abnormal findings (principal); E11.9 Type 2 diabetes mellitus without complications; I10 Essential (primary) hypertension; E78.2 Mixed hyperlipidemia; E55.9 Vitamin D deficiency, unspecified

== ENCOUNTER → 2020-04-13 | Outpatient (CLI) | payer MEDICARE | END | disposition home or self-care (01) | LOC: US 10:00 | PROVIDERS: ATTEND Internal Medicine | DX: R42 Dizziness and giddiness (principal); R51.9 Headache, unspecified; E11.9 Type 2 diabetes mellitus without complications; I10 Essential (primary) hypertension ==

== ENCOUNTER → 2021-02-04 | Outpatient (CLI) | payer MEDICARE ==
[2021-02-04 10:01] LABS: BASO # 0.1 10*3/uL (0.0-0.1); BASO % 0.8 % (0.0-1.0); EOS # 0.1 10*3/uL (0.0-0.4); EOS % 1.1 % (1.0-4.0); HEMATOCRIT 40.7 % (42.0-52.0); LYMPH # 1.3 10*3/uL (1.3-4.4); LYMPH % 11.5 % (27.0-41.0); MEAN CELL VOLUME 92.1 fl (80.0-94.0); MEAN CORPUSCULAR HGB 28.3 pg (27.0-31.0); MEAN CORPUSCULAR HGB CONC 30.7 g/dl (33.0-37.0); MEAN PLATELET VOLUME 10.9 fl (9.6-12.3); MONO # 0.8 10*3/uL (0.1-1.0); MONO % 7.1 % (3.0-9.0); NEUT # 9.2 10*3/uL (2.3-7.9); NEUT % 79.2 % (47.0-73.0); PLATELET COUNT AUTOMATED 200 10*3/uL (130-400); RED BLOOD COUNT 4.42 10*6/uL (4.50-5.90); RED CELL DISTRI WIDTH 14.1 % (0-14.5); WHITE BLOOD COUNT 11.6 10*3/uL (4.8-10.8)
[2021-02-04 10:17] LABS: ALBUMIN 3.1 gm/dl (3.1-4.5); CREATININE 1.59 mg/dL (0.70-1.30); FREE T4 0.79 ng/dl (0.76-1.46); POTASSIUM 5.2 mmol/L (3.5-5.1)
[2021-02-04 10:22] LABS: THYROID STIM HORMONE (HS) 4.28 uIU/ml (0.358-4.75)
[2021-02-04 10:57] LABS: VITAMIN D, 25-HYDROXY 22.5 ng/mL (30-100)
== END | disposition home or self-care (01) ==
LOC: LAB 09:33
PROVIDERS: ATTEND Internal Medicine
DX: I10 Essential (primary) hypertension (principal); E78.2 Mixed hyperlipidemia; E11.9 Type 2 diabetes mellitus without complications; E55.9 Vitamin D deficiency, unspecified

== ENCOUNTER → 2021-03-14 | Outpatient (CLI) | payer MEDICARE ==
[2021-03-14 13:19] LABS: CREATININE 1.89 mg/dL (0.70-1.30); POTASSIUM 5.4 mmol/L (3.5-5.1)
== END | disposition home or self-care (01) ==
LOC: LAB 12:30
PROVIDERS: ATTEND Internal Medicine Cardiovascular Disease
DX: I25.5 Ischemic cardiomyopathy (principal)

== ENCOUNTER → 2021-12-08 | Outpatient (CLI) | payer MEDICARE ==
[2021-12-08 09:07] LABS: CREATININE 1.5 mg/dL (0.70-1.30); POTASSIUM 5.2 mmol/L (3.5-5.1)
== END | disposition home or self-care (01) ==
LOC: WOUNDCARE 01:17 → LAB 01:17 → WOUNDCARE 14:44
PROVIDERS: Internal Medicine; ATTEND Nurse Practitioner Family
DX: E11.621 Type 2 diabetes mellitus with foot ulcer (principal); L97.522 Non-pressure chronic ulcer of other part of left foot with fat layer exposed; E11.51 Type 2 diabetes mellitus with diabetic peripheral angiopathy without gangrene; L84 Corns and callosities; E11.40 Type 2 diabetes mellitus with diabetic neuropathy, unspecified; I11.9 Hypertensive heart disease without heart failure; Z98.42 Cataract extraction status, left eye; Z98.41 Cataract extraction status, right eye; Z95.0 Presence of cardiac pacemaker; Z89.422 Acquired absence of other left toe(s); Z79.4 Long term (current) use of insulin; Z79.82 Long term (current) use of aspirin; Z79.84 Long term (current) use of oral hypoglycemic drugs

== ENCOUNTER → 2021-12-14 | Outpatient (CLI) | payer MEDICARE | END | disposition home or self-care (01) | LOC: WOUNDCARE 02:55 | PROVIDERS: ATTEND Nurse Practitioner Family | DX: E11.621 Type 2 diabetes mellitus with foot ulcer (principal); L97.522 Non-pressure chronic ulcer of other part of left foot with fat layer exposed; E11.51 Type 2 diabetes mellitus with diabetic peripheral angiopathy without gangrene; L84 Corns and callosities; E11.40 Type 2 diabetes mellitus with diabetic neuropathy, unspecified; I11.9 Hypertensive heart disease without heart failure; Z98.42 Cataract extraction status, left eye; Z98.41 Cataract extraction status, right eye; Z95.0 Presence of cardiac pacemaker; Z89.422 Acquired absence of other left toe(s); Z79.4 Long term (current) use of insulin; Z79.82 Long term (current) use of aspirin; Z79.84 Long term (current) use of oral hypoglycemic drugs ==

== ENCOUNTER → 2021-12-22 | Outpatient (CLI) | payer MEDICARE | END | disposition home or self-care (01) | LOC: WOUNDCARE 01:03 | PROVIDERS: ATTEND Nurse Practitioner Family | DX: E11.621 Type 2 diabetes mellitus with foot ulcer (principal); L97.522 Non-pressure chronic ulcer of other part of left foot with fat layer exposed; L84 Corns and callosities; E11.51 Type 2 diabetes mellitus with diabetic peripheral angiopathy without gangrene; E11.40 Type 2 diabetes mellitus with diabetic neuropathy, unspecified; I10 Essential (primary) hypertension; Z98.41 Cataract extraction status, right eye; Z98.42 Cataract extraction status, left eye; Z95.0 Presence of cardiac pacemaker; Z89.422 Acquired absence of other left toe(s) ==

== ENCOUNTER → 2021-12-29 | Outpatient (CLI) | payer MEDICARE | END | disposition home or self-care (01) | LOC: WOUNDCARE 02:24 | PROVIDERS: ATTEND Nurse Practitioner Family | DX: E11.621 Type 2 diabetes mellitus with foot ulcer (principal); L97.522 Non-pressure chronic ulcer of other part of left foot with fat layer exposed; E11.51 Type 2 diabetes mellitus with diabetic peripheral angiopathy without gangrene; E11.40 Type 2 diabetes mellitus with diabetic neuropathy, unspecified; I11.9 Hypertensive heart disease without heart failure; Z98.49 Cataract extraction status, unspecified eye; Z95.0 Presence of cardiac pacemaker; Z89.422 Acquired absence of other left toe(s) ==

== ENCOUNTER → 2022-01-06 | Outpatient (CLI) | payer MEDICARE | END | disposition home or self-care (01) | LOC: WOUNDCARE 01:52 | PROVIDERS: ATTEND Nurse Practitioner Family | DX: E11.621 Type 2 diabetes mellitus with foot ulcer (principal); L97.522 Non-pressure chronic ulcer of other part of left foot with fat layer exposed; E11.51 Type 2 diabetes mellitus with diabetic peripheral angiopathy without gangrene; E11.40 Type 2 diabetes mellitus with diabetic neuropathy, unspecified; I11.9 Hypertensive heart disease without heart failure; Z98.49 Cataract extraction status, unspecified eye; Z95.0 Presence of cardiac pacemaker; Z89.422 Acquired absence of other left toe(s) ==

== ENCOUNTER → 2022-01-13 | Outpatient (CLI) | payer MEDICARE | END | disposition home or self-care (01) | LOC: US 12:35 | PROVIDERS: ATTEND Nurse Practitioner Family | DX: E11.621 Type 2 diabetes mellitus with foot ulcer (principal); L97.522 Non-pressure chronic ulcer of other part of left foot with fat layer exposed; L03.116 Cellulitis of left lower limb; I70.202 Unspecified atherosclerosis of native arteries of extremities, left leg ==

== ENCOUNTER → 2022-01-17 | Outpatient (CLI) | payer MEDICARE | END | disposition home or self-care (01) | LOC: WOUNDCARE 03:02 | PROVIDERS: ATTEND Nurse Practitioner Family | DX: E11.621 Type 2 diabetes mellitus with foot ulcer (principal); L97.522 Non-pressure chronic ulcer of other part of left foot with fat layer exposed; L84 Corns and callosities; E11.51 Type 2 diabetes mellitus with diabetic peripheral angiopathy without gangrene; E11.36 Type 2 diabetes mellitus with diabetic cataract; H26.9 Unspecified cataract; E11.40 Type 2 diabetes mellitus with diabetic neuropathy, unspecified; I10 Essential (primary) hypertension; Z95.0 Presence of cardiac pacemaker; Z89.422 Acquired absence of other left toe(s) ==

== ENCOUNTER → 2022-01-24 | Outpatient (CLI) | payer MEDICARE | END | disposition home or self-care (01) | LOC: WOUNDCARE 01:07 | PROVIDERS: ATTEND Nurse Practitioner Family | DX: E11.621 Type 2 diabetes mellitus with foot ulcer (principal); L97.522 Non-pressure chronic ulcer of other part of left foot with fat layer exposed; L84 Corns and callosities; E11.51 Type 2 diabetes mellitus with diabetic peripheral angiopathy without gangrene; E11.40 Type 2 diabetes mellitus with diabetic neuropathy, unspecified; I10 Essential (primary) hypertension; Z98.49 Cataract extraction status, unspecified eye; Z95.0 Presence of cardiac pacemaker; Z89.422 Acquired absence of other left toe(s) ==

== ENCOUNTER → 2022-02-16 | Outpatient (CLI) | payer MEDICARE | END | disposition home or self-care (01) | LOC: WOUNDCARE 00:12 | PROVIDERS: ATTEND Nurse Practitioner Family | DX: E11.621 Type 2 diabetes mellitus with foot ulcer (principal); L97.522 Non-pressure chronic ulcer of other part of left foot with fat layer exposed; L84 Corns and callosities; E11.51 Type 2 diabetes mellitus with diabetic peripheral angiopathy without gangrene; E11.40 Type 2 diabetes mellitus with diabetic neuropathy, unspecified; I11.9 Hypertensive heart disease without heart failure; Z98.49 Cataract extraction status, unspecified eye; Z95.0 Presence of cardiac pacemaker; Z89.422 Acquired absence of other left toe(s) ==

== ENCOUNTER → 2022-02-21 | Outpatient (CLI) | payer MEDICARE | END | disposition home or self-care (01) | LOC: WOUNDCARE 01:14 | PROVIDERS: ATTEND Nurse Practitioner Family | DX: E11.621 Type 2 diabetes mellitus with foot ulcer (principal); L97.522 Non-pressure chronic ulcer of other part of left foot with fat layer exposed; L84 Corns and callosities; E11.51 Type 2 diabetes mellitus with diabetic peripheral angiopathy without gangrene; E11.40 Type 2 diabetes mellitus with diabetic neuropathy, unspecified; I11.9 Hypertensive heart disease without heart failure; Z98.41 Cataract extraction status, right eye; Z98.42 Cataract extraction status, left eye; Z95.0 Presence of cardiac pacemaker; Z89.422 Acquired absence of other left toe(s) ==

== ENCOUNTER → 2022-02-23 | Outpatient (CLI) | payer MEDICARE | END | disposition home or self-care (01) | LOC: WOUNDCARE 01:53 | PROVIDERS: ATTEND Nurse Practitioner Family | DX: E11.621 Type 2 diabetes mellitus with foot ulcer (principal); L97.522 Non-pressure chronic ulcer of other part of left foot with fat layer exposed; E11.51 Type 2 diabetes mellitus with diabetic peripheral angiopathy without gangrene; E11.40 Type 2 diabetes mellitus with diabetic neuropathy, unspecified; I10 Essential (primary) hypertension; Z89.422 Acquired absence of other left toe(s); Z98.49 Cataract extraction status, unspecified eye; Z95.0 Presence of cardiac pacemaker ==

== ENCOUNTER → 2022-02-28 | Outpatient (CLI) | payer MEDICARE | END | disposition home or self-care (01) | LOC: WOUNDCARE 02:02 | PROVIDERS: ATTEND Nurse Practitioner Family | DX: E11.621 Type 2 diabetes mellitus with foot ulcer (principal); L97.522 Non-pressure chronic ulcer of other part of left foot with fat layer exposed; L84 Corns and callosities; E11.51 Type 2 diabetes mellitus with diabetic peripheral angiopathy without gangrene; E11.40 Type 2 diabetes mellitus with diabetic neuropathy, unspecified; I11.9 Hypertensive heart disease without heart failure; Z89.422 Acquired absence of other left toe(s); Z95.0 Presence of cardiac pacemaker; Z98.49 Cataract extraction status, unspecified eye ==

== ENCOUNTER → 2022-03-07 | Outpatient (CLI) | payer MEDICARE | END | disposition home or self-care (01) | LOC: WOUNDCARE 02:06 | PROVIDERS: ATTEND Nurse Practitioner Family | DX: E11.621 Type 2 diabetes mellitus with foot ulcer (principal); L97.522 Non-pressure chronic ulcer of other part of left foot with fat layer exposed; L84 Corns and callosities; E11.51 Type 2 diabetes mellitus with diabetic peripheral angiopathy without gangrene; E11.40 Type 2 diabetes mellitus with diabetic neuropathy, unspecified; I11.9 Hypertensive heart disease without heart failure; Z98.41 Cataract extraction status, right eye; Z98.42 Cataract extraction status, left eye; Z95.0 Presence of cardiac pacemaker; Z89.422 Acquired absence of other left toe(s) ==

== ENCOUNTER → 2022-03-14 | Outpatient (CLI) | payer MEDICARE | END | disposition home or self-care (01) | LOC: WOUNDCARE 02:29 | PROVIDERS: ATTEND Nurse Practitioner Family | DX: E11.621 Type 2 diabetes mellitus with foot ulcer (principal); L97.522 Non-pressure chronic ulcer of other part of left foot with fat layer exposed; L84 Corns and callosities; E11.51 Type 2 diabetes mellitus with diabetic peripheral angiopathy without gangrene; E11.40 Type 2 diabetes mellitus with diabetic neuropathy, unspecified; I11.9 Hypertensive heart disease without heart failure; Z98.41 Cataract extraction status, right eye; Z98.42 Cataract extraction status, left eye; Z95.0 Presence of cardiac pacemaker; Z89.422 Acquired absence of other left toe(s) ==

== ENCOUNTER → 2022-03-21 | Outpatient (CLI) | payer MEDICARE | END | disposition home or self-care (01) | LOC: WOUNDCARE 03:19 | PROVIDERS: ATTEND Nurse Practitioner Family | DX: E11.621 Type 2 diabetes mellitus with foot ulcer (principal); L97.522 Non-pressure chronic ulcer of other part of left foot with fat layer exposed; S91.302D Unspecified open wound, left foot, subsequent encounter; L89.890 Pressure ulcer of other site, unstageable; L84 Corns and callosities; E11.51 Type 2 diabetes mellitus with diabetic peripheral angiopathy without gangrene; E11.40 Type 2 diabetes mellitus with diabetic neuropathy, unspecified; I10 Essential (primary) hypertension; Z98.49 Cataract extraction status, unspecified eye; Z95.0 Presence of cardiac pacemaker; Z89.422 Acquired absence of other left toe(s); X58.XXXD Exposure to other specified factors, subsequent encounter ==

== ENCOUNTER → 2022-03-28 | Outpatient (CLI) | payer MEDICARE | END | disposition home or self-care (01) | LOC: WOUNDCARE 02:06 | PROVIDERS: ATTEND Nurse Practitioner Family | DX: E11.621 Type 2 diabetes mellitus with foot ulcer (principal); L97.522 Non-pressure chronic ulcer of other part of left foot with fat layer exposed; L89.890 Pressure ulcer of other site, unstageable; S91.302D Unspecified open wound, left foot, subsequent encounter; L84 Corns and callosities; E11.51 Type 2 diabetes mellitus with diabetic peripheral angiopathy without gangrene; E11.40 Type 2 diabetes mellitus with diabetic neuropathy, unspecified; I10 Essential (primary) hypertension; Z98.49 Cataract extraction status, unspecified eye; Z95.0 Presence of cardiac pacemaker; X58.XXXD Exposure to other specified factors, subsequent encounter ==

== ENCOUNTER → 2022-04-04 | Outpatient (CLI) | payer MEDICARE | END | disposition home or self-care (01) | LOC: WOUNDCARE 04:43 | PROVIDERS: ATTEND Nurse Practitioner Family | DX: E11.621 Type 2 diabetes mellitus with foot ulcer (principal); L97.522 Non-pressure chronic ulcer of other part of left foot with fat layer exposed; E11.51 Type 2 diabetes mellitus with diabetic peripheral angiopathy without gangrene; L84 Corns and callosities; L89.890 Pressure ulcer of other site, unstageable; S91.302D Unspecified open wound, left foot, subsequent encounter; I11.9 Hypertensive heart disease without heart failure; E11.40 Type 2 diabetes mellitus with diabetic neuropathy, unspecified; Z98.49 Cataract extraction status, unspecified eye; Z95.0 Presence of cardiac pacemaker; Z89.422 Acquired absence of other left toe(s); X58.XXXD Exposure to other specified factors, subsequent encounter ==

== ENCOUNTER 2022-04-06 22:04 | Emergency (ER) | payer MEDICARE ==
[~2022-04-06] VITALS: Ht 182.8 cm; Wt 126.6 kg
[2022-04-06 22:26] VITALS: BP 111/77
[2022-04-06 22:45] LABS: BASO # 0.1 10*3/uL (0.0-0.1); BASO % 0.8 % (0.0-1.0); EOS # 0.2 10*3/uL (0.0-0.4); EOS % 1.4 % (1.0-4.0); HEMATOCRIT 38.7 % (42.0-52.0); LYMPH # 1.5 10*3/uL (1.3-4.4); LYMPH % 9.5 % (27.0-41.0); MEAN CELL VOLUME 89.2 fl (80.0-94.0); MEAN CORPUSCULAR HGB CONC 32.6 g/dl (33.0-37.0); MEAN PLATELET VOLUME 11.4 fl (9.6-12.3); MONO # 1.4 10*3/uL (0.1-1.0); MONO % 9.5 % (3.0-9.0); NEUT # 11.9 10*3/uL (2.3-7.9); NEUT % 78.3 % (47.0-73.0); PLATELET COUNT AUTOMATED 198 10*3/uL (130-400); RED BLOOD COUNT 4.34 10*6/uL (4.50-5.90); RED CELL DISTRI WIDTH 14.4 % (0-14.5); WHITE BLOOD COUNT 15.2 10*3/uL (4.8-10.8)
[2022-04-06 22:56] LABS: ACT PARTIAL THROMBO TIME 27.1 SECONDS (20.0-32.1)
[2022-04-06 23:03] LABS: CREATININE 1.6 mg/dL (0.70-1.30); TOTAL PROTEIN 8.4 gm/dL (6.4-8.2)
== END 2022-04-07 01:07 | disposition home or self-care (01) ==
LOC: ED 22:04
PROVIDERS: Family Medicine
DX: R42 Dizziness and giddiness (principal); R53.1 Weakness; Z79.899 Other long term (current) drug therapy; Z79.82 Long term (current) use of aspirin; Z98.890 Other specified postprocedural states

== ENCOUNTER → 2022-04-18 | Outpatient (CLI) | payer MEDICARE | END | disposition home or self-care (01) | LOC: WOUNDCARE 01:55 | PROVIDERS: ATTEND Nurse Practitioner Family | DX: E11.621 Type 2 diabetes mellitus with foot ulcer (principal); L97.522 Non-pressure chronic ulcer of other part of left foot with fat layer exposed; L89.893 Pressure ulcer of other site, stage 3; S91.302D Unspecified open wound, left foot, subsequent encounter; L84 Corns and callosities; E11.51 Type 2 diabetes mellitus with diabetic peripheral angiopathy without gangrene; E11.40 Type 2 diabetes mellitus with diabetic neuropathy, unspecified; I11.9 Hypertensive heart disease without heart failure; Z98.49 Cataract extraction status, unspecified eye; Z95.0 Presence of cardiac pacemaker; Z89.422 Acquired absence of other left toe(s); X58.XXXD Exposure to other specified factors, subsequent encounter ==

== ENCOUNTER → 2022-04-25 | Outpatient (CLI) | payer MEDICARE | END | disposition home or self-care (01) | LOC: WOUNDCARE 00:44 | PROVIDERS: ATTEND Nurse Practitioner Family | DX: E11.621 Type 2 diabetes mellitus with foot ulcer (principal); L97.522 Non-pressure chronic ulcer of other part of left foot with fat layer exposed; L89.893 Pressure ulcer of other site, stage 3; L84 Corns and callosities; S91.302D Unspecified open wound, left foot, subsequent encounter; E11.51 Type 2 diabetes mellitus with diabetic peripheral angiopathy without gangrene; E11.40 Type 2 diabetes mellitus with diabetic neuropathy, unspecified; I11.9 Hypertensive heart disease without heart failure; Z98.41 Cataract extraction status, right eye; Z98.42 Cataract extraction status, left eye; Z95.0 Presence of cardiac pacemaker; Z89.422 Acquired absence of other left toe(s); X58.XXXD Exposure to other specified factors, subsequent encounter ==

== ENCOUNTER → 2022-05-02 | Outpatient (CLI) | payer MEDICARE | END | disposition home or self-care (01) | LOC: WOUNDCARE 03:32 | PROVIDERS: ATTEND Nurse Practitioner Family | DX: E11.621 Type 2 diabetes mellitus with foot ulcer (principal); L97.522 Non-pressure chronic ulcer of other part of left foot with fat layer exposed; L89.893 Pressure ulcer of other site, stage 3; L84 Corns and callosities; S91.302D Unspecified open wound, left foot, subsequent encounter; E11.51 Type 2 diabetes mellitus with diabetic peripheral angiopathy without gangrene; E11.40 Type 2 diabetes mellitus with diabetic neuropathy, unspecified; I11.9 Hypertensive heart disease without heart failure; Z98.41 Cataract extraction status, right eye; Z98.42 Cataract extraction status, left eye; Z95.0 Presence of cardiac pacemaker; Z89.422 Acquired absence of other left toe(s); X58.XXXD Exposure to other specified factors, subsequent encounter ==

== ENCOUNTER → 2022-05-09 | Outpatient (CLI) | payer MEDICARE | END | disposition home or self-care (01) | LOC: WOUNDCARE 02:55 | PROVIDERS: ATTEND Nurse Practitioner Family | DX: E11.621 Type 2 diabetes mellitus with foot ulcer (principal); L97.522 Non-pressure chronic ulcer of other part of left foot with fat layer exposed; S91.302D Unspecified open wound, left foot, subsequent encounter; L84 Corns and callosities; E11.51 Type 2 diabetes mellitus with diabetic peripheral angiopathy without gangrene; E11.40 Type 2 diabetes mellitus with diabetic neuropathy, unspecified; I11.9 Hypertensive heart disease without heart failure; Z98.49 Cataract extraction status, unspecified eye; Z95.0 Presence of cardiac pacemaker; Z89.422 Acquired absence of other left toe(s); X58.XXXD Exposure to other specified factors, subsequent encounter ==

== ENCOUNTER → 2022-05-16 | Outpatient (CLI) | payer MEDICARE | END | disposition home or self-care (01) | LOC: WOUNDCARE 02:55 | PROVIDERS: ATTEND Nurse Practitioner Family | DX: E11.621 Type 2 diabetes mellitus with foot ulcer (principal); L97.522 Non-pressure chronic ulcer of other part of left foot with fat layer exposed; S91.302D Unspecified open wound, left foot, subsequent encounter; L84 Corns and callosities; E11.51 Type 2 diabetes mellitus with diabetic peripheral angiopathy without gangrene; E11.40 Type 2 diabetes mellitus with diabetic neuropathy, unspecified; I11.9 Hypertensive heart disease without heart failure; Z98.49 Cataract extraction status, unspecified eye; Z95.0 Presence of cardiac pacemaker; X58.XXXD Exposure to other specified factors, subsequent encounter ==

== ENCOUNTER → 2022-05-30 | Outpatient (CLI) | payer MEDICARE | END | disposition home or self-care (01) | LOC: WOUNDCARE 01:32 | PROVIDERS: ATTEND Nurse Practitioner Family | DX: E11.621 Type 2 diabetes mellitus with foot ulcer (principal); L97.522 Non-pressure chronic ulcer of other part of left foot with fat layer exposed; S91.302D Unspecified open wound, left foot, subsequent encounter; L84 Corns and callosities; E11.51 Type 2 diabetes mellitus with diabetic peripheral angiopathy without gangrene; E11.40 Type 2 diabetes mellitus with diabetic neuropathy, unspecified; I11.9 Hypertensive heart disease without heart failure; Z98.49 Cataract extraction status, unspecified eye; Z95.0 Presence of cardiac pacemaker; X58.XXXD Exposure to other specified factors, subsequent encounter ==

== ENCOUNTER → 2022-06-06 | Outpatient (CLI) | payer MEDICARE | END | disposition home or self-care (01) | LOC: WOUNDCARE 03:09 | PROVIDERS: ATTEND Nurse Practitioner Family | DX: E11.621 Type 2 diabetes mellitus with foot ulcer (principal); L97.522 Non-pressure chronic ulcer of other part of left foot with fat layer exposed; S91.302D Unspecified open wound, left foot, subsequent encounter; E11.51 Type 2 diabetes mellitus with diabetic peripheral angiopathy without gangrene; E11.40 Type 2 diabetes mellitus with diabetic neuropathy, unspecified; I11.9 Hypertensive heart disease without heart failure; Z98.49 Cataract extraction status, unspecified eye; Z95.0 Presence of cardiac pacemaker; Z89.422 Acquired absence of other left toe(s); X58.XXXD Exposure to other specified factors, subsequent encounter ==

== ENCOUNTER → 2022-08-02 | Outpatient (CLI) | payer MEDICARE | END | disposition home or self-care (01) | LOC: WOUNDCARE 04-11 00:57 | PROVIDERS: ATTEND Nurse Practitioner Family | DX: E11.621 Type 2 diabetes mellitus with foot ulcer (principal); L97.522 Non-pressure chronic ulcer of other part of left foot with fat layer exposed; S91.302A Unspecified open wound, left foot, initial encounter; L84 Corns and callosities; E11.51 Type 2 diabetes mellitus with diabetic peripheral angiopathy without gangrene; E11.36 Type 2 diabetes mellitus with diabetic cataract; H26.9 Unspecified cataract; E11.40 Type 2 diabetes mellitus with diabetic neuropathy, unspecified; I11.9 Hypertensive heart disease without heart failure; Z95.0 Presence of cardiac pacemaker; Z89.422 Acquired absence of other left toe(s); Z79.4 Long term (current) use of insulin; X58.XXXA Exposure to other specified factors, initial encounter; Y93.89 Activity, other specified; Y92.89 Other specified places as the place of occurrence of the external cause; Y99.8 Other external cause status ==

== ENCOUNTER → 2022-08-09 | Outpatient (CLI) | payer MEDICARE | END | disposition home or self-care (01) | LOC: WOUNDCARE 01:55 | PROVIDERS: ATTEND Nurse Practitioner Family | DX: E11.621 Type 2 diabetes mellitus with foot ulcer (principal); L97.522 Non-pressure chronic ulcer of other part of left foot with fat layer exposed; E11.51 Type 2 diabetes mellitus with diabetic peripheral angiopathy without gangrene; S91.302A Unspecified open wound, left foot, initial encounter; I11.9 Hypertensive heart disease without heart failure; E11.40 Type 2 diabetes mellitus with diabetic neuropathy, unspecified; Z98.41 Cataract extraction status, right eye; Z98.42 Cataract extraction status, left eye; Z95.0 Presence of cardiac pacemaker; Z89.422 Acquired absence of other left toe(s); X58.XXXA Exposure to other specified factors, initial encounter; Y93.89 Activity, other specified; Y92.89 Other specified places as the place of occurrence of the external cause; Y99.8 Other external cause status ==

== ENCOUNTER → 2022-08-16 | Outpatient (CLI) | payer MEDICARE | END | disposition home or self-care (01) | LOC: WOUNDCARE 02:47 | PROVIDERS: ATTEND Nurse Practitioner Family | DX: E11.621 Type 2 diabetes mellitus with foot ulcer (principal); L97.522 Non-pressure chronic ulcer of other part of left foot with fat layer exposed; S91.302D Unspecified open wound, left foot, subsequent encounter; L84 Corns and callosities; E11.51 Type 2 diabetes mellitus with diabetic peripheral angiopathy without gangrene; E11.40 Type 2 diabetes mellitus with diabetic neuropathy, unspecified; Z98.41 Cataract extraction status, right eye; Z98.42 Cataract extraction status, left eye; Z95.0 Presence of cardiac pacemaker; X58.XXXD Exposure to other specified factors, subsequent encounter ==

== ENCOUNTER → 2022-08-24 | Outpatient (CLI) | payer MEDICARE | END | disposition home or self-care (01) | LOC: WOUNDCARE 00:28 | PROVIDERS: ATTEND Nurse Practitioner Family | DX: E11.621 Type 2 diabetes mellitus with foot ulcer (principal); L97.522 Non-pressure chronic ulcer of other part of left foot with fat layer exposed; S91.302D Unspecified open wound, left foot, subsequent encounter; L84 Corns and callosities; E11.51 Type 2 diabetes mellitus with diabetic peripheral angiopathy without gangrene; E11.40 Type 2 diabetes mellitus with diabetic neuropathy, unspecified; I11.9 Hypertensive heart disease without heart failure; Z98.41 Cataract extraction status, right eye; Z98.42 Cataract extraction status, left eye; Z95.0 Presence of cardiac pacemaker; Z89.422 Acquired absence of other left toe(s); X58.XXXD Exposure to other specified factors, subsequent encounter ==

== ENCOUNTER → 2022-08-31 | Outpatient (CLI) | payer MEDICARE | END | disposition home or self-care (01) | LOC: WOUNDCARE 00:38 | PROVIDERS: ATTEND Nurse Practitioner Family | DX: E11.621 Type 2 diabetes mellitus with foot ulcer (principal); L97.522 Non-pressure chronic ulcer of other part of left foot with fat layer exposed; S91.302D Unspecified open wound, left foot, subsequent encounter; L84 Corns and callosities; E11.40 Type 2 diabetes mellitus with diabetic neuropathy, unspecified; E11.51 Type 2 diabetes mellitus with diabetic peripheral angiopathy without gangrene; I11.9 Hypertensive heart disease without heart failure; Z95.0 Presence of cardiac pacemaker; Z98.49 Cataract extraction status, unspecified eye; Z89.422 Acquired absence of other left toe(s); X58.XXXD Exposure to other specified factors, subsequent encounter ==

== ENCOUNTER → 2022-09-07 | Outpatient (CLI) | payer MEDICARE | END | disposition home or self-care (01) | LOC: WOUNDCARE 01:55 | PROVIDERS: ATTEND Nurse Practitioner Family | DX: E11.621 Type 2 diabetes mellitus with foot ulcer (principal); L97.522 Non-pressure chronic ulcer of other part of left foot with fat layer exposed; L84 Corns and callosities; E11.40 Type 2 diabetes mellitus with diabetic neuropathy, unspecified; E11.51 Type 2 diabetes mellitus with diabetic peripheral angiopathy without gangrene; I11.9 Hypertensive heart disease without heart failure; S91.302D Unspecified open wound, left foot, subsequent encounter; Z98.49 Cataract extraction status, unspecified eye; Z95.0 Presence of cardiac pacemaker; X58.XXXD Exposure to other specified factors, subsequent encounter ==

== ENCOUNTER → 2022-09-21 | Outpatient (CLI) | payer MEDICARE | END | disposition home or self-care (01) | LOC: WOUNDCARE 09-13 01:19 | PROVIDERS: ATTEND Nurse Practitioner Family | DX: E11.621 Type 2 diabetes mellitus with foot ulcer (principal); L97.522 Non-pressure chronic ulcer of other part of left foot with fat layer exposed; S91.302D Unspecified open wound, left foot, subsequent encounter; L84 Corns and callosities; E11.51 Type 2 diabetes mellitus with diabetic peripheral angiopathy without gangrene; E11.40 Type 2 diabetes mellitus with diabetic neuropathy, unspecified; I11.9 Hypertensive heart disease without heart failure; Z95.0 Presence of cardiac pacemaker; Z98.49 Cataract extraction status, unspecified eye; X58.XXXD Exposure to other specified factors, subsequent encounter ==

== ENCOUNTER → 2022-09-28 | Outpatient (CLI) | payer MEDICARE | END | disposition home or self-care (01) | LOC: WOUNDCARE 00:18 | PROVIDERS: ATTEND Nurse Practitioner Family | DX: E11.621 Type 2 diabetes mellitus with foot ulcer (principal); L97.522 Non-pressure chronic ulcer of other part of left foot with fat layer exposed; S91.302D Unspecified open wound, left foot, subsequent encounter; L84 Corns and callosities; E11.51 Type 2 diabetes mellitus with diabetic peripheral angiopathy without gangrene; E11.40 Type 2 diabetes mellitus with diabetic neuropathy, unspecified; I10 Essential (primary) hypertension; Z95.0 Presence of cardiac pacemaker; Z98.49 Cataract extraction status, unspecified eye; X58.XXXD Exposure to other specified factors, subsequent encounter ==

== ENCOUNTER → 2022-10-05 | Outpatient (CLI) | payer MEDICARE | END | disposition home or self-care (01) | LOC: WOUNDCARE 01:28 | PROVIDERS: ATTEND Nurse Practitioner Family | DX: E11.621 Type 2 diabetes mellitus with foot ulcer (principal); L97.522 Non-pressure chronic ulcer of other part of left foot with fat layer exposed; S91.302D Unspecified open wound, left foot, subsequent encounter; L84 Corns and callosities; E11.51 Type 2 diabetes mellitus with diabetic peripheral angiopathy without gangrene; E11.40 Type 2 diabetes mellitus with diabetic neuropathy, unspecified; I11.9 Hypertensive heart disease without heart failure; Z95.0 Presence of cardiac pacemaker; Z98.49 Cataract extraction status, unspecified eye; Z89.422 Acquired absence of other left toe(s); X58.XXXD Exposure to other specified factors, subsequent encounter ==

== ENCOUNTER → 2022-10-12 | Outpatient (CLI) | payer MEDICARE | END | disposition home or self-care (01) | LOC: WOUNDCARE 00:49 | PROVIDERS: ATTEND Nurse Practitioner Family | DX: E11.621 Type 2 diabetes mellitus with foot ulcer (principal); L97.522 Non-pressure chronic ulcer of other part of left foot with fat layer exposed; L84 Corns and callosities; E11.51 Type 2 diabetes mellitus with diabetic peripheral angiopathy without gangrene; S91.302D Unspecified open wound, left foot, subsequent encounter; I11.9 Hypertensive heart disease without heart failure; E11.40 Type 2 diabetes mellitus with diabetic neuropathy, unspecified; Z98.49 Cataract extraction status, unspecified eye; Z95.0 Presence of cardiac pacemaker; X58.XXXD Exposure to other specified factors, subsequent encounter ==

== ENCOUNTER → 2022-10-18 | Outpatient (CLI) | payer MEDICARE | END | disposition home or self-care (01) | LOC: WOUNDCARE 01:47 | PROVIDERS: ATTEND Nurse Practitioner Family | DX: E11.621 Type 2 diabetes mellitus with foot ulcer (principal); L97.522 Non-pressure chronic ulcer of other part of left foot with fat layer exposed; S91.302D Unspecified open wound, left foot, subsequent encounter; L84 Corns and callosities; E11.51 Type 2 diabetes mellitus with diabetic peripheral angiopathy without gangrene; E11.40 Type 2 diabetes mellitus with diabetic neuropathy, unspecified; I10 Essential (primary) hypertension; X58.XXXD Exposure to other specified factors, subsequent encounter ==

== ENCOUNTER → 2022-10-25 | Outpatient (CLI) | payer MEDICARE ==
[2022-10-25 08:26] LABS: BASO # 0.1 10*3/uL (0.0-0.1); EOS # 0.2 10*3/uL (0.0-0.4); EOS % 1.9 % (1.0-4.0); HEMATOCRIT 43.1 % (42.0-52.0); LYMPH % 16.3 % (27.0-41.0); MEAN CELL VOLUME 92.7 fl (80.0-94.0); MEAN CORPUSCULAR HGB 28.8 pg (27.0-31.0); MEAN CORPUSCULAR HGB CONC 31.1 g/dl (33.0-37.0); MEAN PLATELET VOLUME 11.4 fl (9.6-12.3); MONO % 7.8 % (3.0-9.0); NEUT % 72.5 % (47.0-73.0); PLATELET COUNT AUTOMATED 174 10*3/uL (130-400); RED BLOOD COUNT 4.65 10*6/uL (4.50-5.90); RED CELL DISTRI WIDTH 14.6 % (0-14.5); WHITE BLOOD COUNT 12.4 10*3/uL (4.8-10.8)
[2022-10-25 08:55] LABS: ALKALINE PHOSPHATASE 82 U/L (46-116); BUN 22 mg/dl (9-23); CHLORIDE 107 mmol/L (98-107); CHOLESTEROL 116 mg/dL (<200); FREE T4 0.84 ng/dl (0.89-1.76); LDL CHOLESTEROL 60 mg/dL (9-159); POTASSIUM 4.5 mmol/L (3.4-5.1); THYROID STIM HORMONE (HS) 5.353 uIU/ml (0.550-4.780); TOTAL PROTEIN 7.8 gm/dL (6.0-8.0); TRIGLYCERIDES 71 mg/dl (<150)
[2022-10-25 08:57] LABS: SGPT/ALT < 7 U/L (10-49)
[2022-10-25 09:42] LABS: VITAMIN D, 25-HYDROXY 34.3 ng/mL (30-100)
== END | disposition home or self-care (01) ==
LOC: WOUNDCARE 02:32 → LAB 02:49
PROVIDERS: Internal Medicine; ATTEND Nurse Practitioner Primary Care
DX: Z13.0 Encounter for screening for diseases of the blood and blood-forming organs and certain disorders involving the immune mechanism (principal); Z13.1 Encounter for screening for diabetes mellitus; Z13.220 Encounter for screening for lipoid disorders; Z13.228 Encounter for screening for other metabolic disorders; Z13.29 Encounter for screening for other suspected endocrine disorder; Z13.89 Encounter for screening for other disorder; Z13.9 Encounter for screening, unspecified; Z13.21 Encounter for screening for nutritional disorder; Z12.5 Encounter for screening for malignant neoplasm of prostate; E55.9 Vitamin D deficiency, unspecified; Z79.899 Other long term (current) drug therapy

== ENCOUNTER → 2023-03-01 | Outpatient (CLI) | payer MEDICARE ==
[~2023-03-01] MED LIST changes: +ASPIRIN CHEWABL81 MG PO; +ENTRESTO 24 MG1 EACH PO; +GLIPIZIDE10 M2 PO; +JARDIANCE10 MG PO; +LIPITOR20 MG PO; +NEURONTIN300 MG PO; +SERTRALINE HYD100 MG PO; +SYNTHROID25 MCG PO
== END | disposition home or self-care (01) ==
LOC: WOUNDCARE 01:39
PROVIDERS: ATTEND Nurse Practitioner Family
DX: E11.621 Type 2 diabetes mellitus with foot ulcer (principal); L97.522 Non-pressure chronic ulcer of other part of left foot with fat layer exposed; L92.8 Other granulomatous disorders of the skin and subcutaneous tissue; L84 Corns and callosities; E11.40 Type 2 diabetes mellitus with diabetic neuropathy, unspecified; E11.22 Type 2 diabetes mellitus with diabetic chronic kidney disease; I12.9 Hypertensive chronic kidney disease with stage 1 through stage 4 chronic kidney disease, or unspecified chronic kidney disease; N18.9 Chronic kidney disease, unspecified; I25.5 Ischemic cardiomyopathy; E78.5 Hyperlipidemia, unspecified; Z89.422 Acquired absence of other left toe(s); Z98.49 Cataract extraction status, unspecified eye; Z95.0 Presence of cardiac pacemaker

== ENCOUNTER → 2023-03-05 | Outpatient (CLI) | payer MEDICARE | LOC: WOUNDCARE 00:50 | PROVIDERS: ATTEND Nurse Practitioner Family | DX: E11.621 Type 2 diabetes mellitus with foot ulcer (principal); L97.522 Non-pressure chronic ulcer of other part of left foot with fat layer exposed; L84 Corns and callosities; L92.8 Other granulomatous disorders of the skin and subcutaneous tissue; E11.40 Type 2 diabetes mellitus with diabetic neuropathy, unspecified; E11.22 Type 2 diabetes mellitus with diabetic chronic kidney disease; I12.9 Hypertensive chronic kidney disease with stage 1 through stage 4 chronic kidney disease, or unspecified chronic kidney disease; N18.9 Chronic kidney disease, unspecified; E78.5 Hyperlipidemia, unspecified; I25.5 Ischemic cardiomyopathy; Z89.422 Acquired absence of other left toe(s); Z98.49 Cataract extraction status, unspecified eye; Z95.0 Presence of cardiac pacemaker ==

== ENCOUNTER → 2023-03-12 | Outpatient (CLI) | payer MEDICARE | END | disposition home or self-care (01) | LOC: WOUNDCARE 04:13 | PROVIDERS: ATTEND Nurse Practitioner Family | DX: E11.621 Type 2 diabetes mellitus with foot ulcer (principal); L97.522 Non-pressure chronic ulcer of other part of left foot with fat layer exposed; L92.8 Other granulomatous disorders of the skin and subcutaneous tissue; L84 Corns and callosities; E11.40 Type 2 diabetes mellitus with diabetic neuropathy, unspecified; E11.22 Type 2 diabetes mellitus with diabetic chronic kidney disease; I12.9 Hypertensive chronic kidney disease with stage 1 through stage 4 chronic kidney disease, or unspecified chronic kidney disease; N18.9 Chronic kidney disease, unspecified; E78.5 Hyperlipidemia, unspecified; Z98.41 Cataract extraction status, right eye; Z98.42 Cataract extraction status, left eye; Z95.0 Presence of cardiac pacemaker; Z89.422 Acquired absence of other left toe(s) ==

== ENCOUNTER → 2023-03-16 | Outpatient (CLI) | payer MEDICARE ==
[2023-03-16 13:34] LABS: BASO # 0.1 10*3/uL (0.0-0.1); BASO % 1.1 % (0.0-1.0); EOS # 0.1 10*3/uL (0.0-0.4); EOS % 1.4 % (1.0-4.0); HEMATOCRIT 41.3 % (42.0-52.0); LYMPH # 1.6 10*3/uL (1.3-4.4); LYMPH % 16.6 % (27.0-41.0); MEAN CELL VOLUME 93.2 fl (80.0-94.0); MEAN CORPUSCULAR HGB 29.8 pg (27.0-31.0); MEAN PLATELET VOLUME 11.1 fl (9.6-12.3); MONO # 0.7 10*3/uL (0.1-1.0); MONO % 7.5 % (3.0-9.0); NEUT # 7.1 10*3/uL (2.3-7.9); NEUT % 73.1 % (47.0-73.0); PLATELET COUNT AUTOMATED 219 10*3/uL (130-400); RED BLOOD COUNT 4.43 10*6/uL (4.50-5.90); WHITE BLOOD COUNT 9.7 10*3/uL (4.8-10.8)
[2023-03-16 14:13] LABS: ALKALINE PHOSPHATASE 86 U/L (46-116); BUN 16 mg/dl (9-23); CHLORIDE 104 mmol/L (98-107); POTASSIUM 4.4 mmol/L (3.4-5.1); TOTAL PROTEIN 8.3 gm/dL (6.0-8.0)
[2023-03-16 14:16] LABS: SGPT/ALT < 7 U/L (5-49)
== END | disposition home or self-care (01) ==
LOC: LAB 13:11
PROVIDERS: ATTEND Surgery
DX: K81.0 Acute cholecystitis (principal)

== ENCOUNTER → 2023-03-26 | Outpatient (CLI) | payer MEDICARE | END | disposition home or self-care (01) | LOC: WOUNDCARE 00:53 | PROVIDERS: ATTEND Nurse Practitioner Primary Care | DX: E11.621 Type 2 diabetes mellitus with foot ulcer (principal); L97.521 Non-pressure chronic ulcer of other part of left foot limited to breakdown of skin; L84 Corns and callosities; L92.8 Other granulomatous disorders of the skin and subcutaneous tissue; E11.40 Type 2 diabetes mellitus with diabetic neuropathy, unspecified; E78.5 Hyperlipidemia, unspecified; I25.5 Ischemic cardiomyopathy; E11.22 Type 2 diabetes mellitus with diabetic chronic kidney disease; I12.9 Hypertensive chronic kidney disease with stage 1 through stage 4 chronic kidney disease, or unspecified chronic kidney disease; N18.9 Chronic kidney disease, unspecified; I25.10 Atherosclerotic heart disease of native coronary artery without angina pectoris; Z98.49 Cataract extraction status, unspecified eye; Z89.422 Acquired absence of other left toe(s) ==

== ENCOUNTER → 2023-04-04 | Outpatient (CLI) | payer MEDICARE | END | disposition home or self-care (01) | LOC: WOUNDCARE 02:38 | PROVIDERS: ATTEND Nurse Practitioner Family | DX: E11.621 Type 2 diabetes mellitus with foot ulcer (principal); L97.521 Non-pressure chronic ulcer of other part of left foot limited to breakdown of skin; B35.1 Tinea unguium; L92.8 Other granulomatous disorders of the skin and subcutaneous tissue; E11.22 Type 2 diabetes mellitus with diabetic chronic kidney disease; I12.9 Hypertensive chronic kidney disease with stage 1 through stage 4 chronic kidney disease, or unspecified chronic kidney disease; N18.9 Chronic kidney disease, unspecified; E11.40 Type 2 diabetes mellitus with diabetic neuropathy, unspecified; E78.5 Hyperlipidemia, unspecified; I42.9 Cardiomyopathy, unspecified; I10 Essential (primary) hypertension; Z89.422 Acquired absence of other left toe(s); Z95.0 Presence of cardiac pacemaker ==

== ENCOUNTER → 2023-04-09 | Outpatient (CLI) | payer MEDICARE | END | disposition home or self-care (01) | LOC: WOUNDCARE 00:23 | PROVIDERS: ATTEND Nurse Practitioner Family | DX: E11.621 Type 2 diabetes mellitus with foot ulcer (principal); L97.521 Non-pressure chronic ulcer of other part of left foot limited to breakdown of skin; L92.8 Other granulomatous disorders of the skin and subcutaneous tissue; B35.1 Tinea unguium; E11.40 Type 2 diabetes mellitus with diabetic neuropathy, unspecified; E11.22 Type 2 diabetes mellitus with diabetic chronic kidney disease; I12.9 Hypertensive chronic kidney disease with stage 1 through stage 4 chronic kidney disease, or unspecified chronic kidney disease; N18.9 Chronic kidney disease, unspecified; E78.5 Hyperlipidemia, unspecified; I25.10 Atherosclerotic heart disease of native coronary artery without angina pectoris; I25.5 Ischemic cardiomyopathy; Z89.422 Acquired absence of other left toe(s); Z98.49 Cataract extraction status, unspecified eye; Z95.0 Presence of cardiac pacemaker ==

== ENCOUNTER → 2023-04-23 | Outpatient (CLI) | payer MEDICARE | END | disposition home or self-care (01) | LOC: WOUNDCARE 02:02 | PROVIDERS: ATTEND Nurse Practitioner Family | DX: E11.621 Type 2 diabetes mellitus with foot ulcer (principal); L97.522 Non-pressure chronic ulcer of other part of left foot with fat layer exposed; L84 Corns and callosities; L92.8 Other granulomatous disorders of the skin and subcutaneous tissue; B35.1 Tinea unguium; E11.40 Type 2 diabetes mellitus with diabetic neuropathy, unspecified; E78.5 Hyperlipidemia, unspecified; I10 Essential (primary) hypertension; Z89.422 Acquired absence of other left toe(s); Z98.49 Cataract extraction status, unspecified eye; Z95.0 Presence of cardiac pacemaker ==

== ENCOUNTER 2023-05-31 22:18 | Emergency (ER) | payer MEDICARE ==
[~2023-05-31] VITALS: Wt 110.0 kg
[~2023-05-31 22:18] MED LIST changes: +GOOD SENSE ASP325 MG PO; +JARDIANCE25 MG PO; +LEVOTHYROXINE75 MCG PO; +PRAVASTATIN SOD20 MG PO; +SERTRALINE HCL150 MG PO
[2023-05-31 22:27] VITALS: BP 86/50
[2023-06-01 01:24] VITALS: BP 000/00
== END 2023-05-31 23:31 ==
LOC: ED 22:18
DX: I46.9 Cardiac arrest, cause unspecified (principal); I25.10 Atherosclerotic heart disease of native coronary artery without angina pectoris; I25.2 Old myocardial infarction; I42.9 Cardiomyopathy, unspecified; Z86.73 Personal history of transient ischemic attack (TIA), and cerebral infarction without residual deficits; F32.A Depression, unspecified; E11.22 Type 2 diabetes mellitus with diabetic chronic kidney disease; I12.9 Hypertensive chronic kidney disease with stage 1 through stage 4 chronic kidney disease, or unspecified chronic kidney disease; N18.9 Chronic kidney disease, unspecified; Z87.442 Personal history of urinary calculi